=== PATIENT | female | born 1985 | race Two or more races ===

== ENCOUNTER → 2020-04-28 09:45 | Outpatient (BNVA) | payer OTHER, SELFPAY | PROVIDERS: PCP Internal Medicine; Visit Provider Advanced Practice Midwife | DX: Z30.09 Encounter for other general counseling and advice on contraception (principal); R63.5 Abnormal weight gain | CPT/HCPCS: 99212 ==

== ENCOUNTER 2021-05-13 09:11 | Emergency (ER) | payer BC, MEDICAID, OTHER, SELFPAY ==
[2021-05-13 09:15] VITALS: BP 130/85; PULSE 77; RESP 16; TEMP 36.8; O2SAT 96; BMI 31.6
[2021-05-13 09:48] LABS: IDNOW Serial# 9DD0AD1C; Strep A Nucleic Acid Negative (Negative)
--- NOTE | 2021-05-13 09:52 | ED.URI ---
HPI - URI/Sore Throat General Chief Complaint: General Medical Stated Complaint: sore throat Time Seen by Provider: 05/13/21 09:19 Source: patient Mode of arrival: ambulatory Limitations: no limitations History of Present Illness MD elicited complaint: sore throat Onset (ago): day(s) (One) Consistency: constant and progressively worsening Severity: moderate Able to tolerate fluids by mouth: Yes Exacerbating factors: swallowing Relieving factors: nothing Associated symptoms: denies other symptoms Treatments prior to arrival: none Related Data Previous Rx's Medication Instructions Recorded vits no.130-ferrous fum 1 tab PO DAILY #30 tab 04/28/20 27 mg iron-folic acid 800 mcg tablet ( Vitamin) norethindrone (contraceptive) 0.35 0.35 mg PO DAILY #28 tab 07/27/20 mg tablet amoxicillin 875 mg-potassium 1 tab PO BID 10 Days #20 tab 05/13/21 clavulanate 125 mg tablet (Augmentin) benzonatate 100 mg capsule 100 mg PO BID PRN #14 cap 05/13/21 fluticasone propionate 50 1 spray INTRANASAL BID #16 g 05/13/21 mcg/actuation nasal spray,suspension (Flonase Allergy Relief) Allergies Allergy/AdvReac Type Severity Reaction Status Date / Time acetaminophen [Tylenol] Allergy Unknown anaphylaxis Verified 04/28/20 10:27 Review of Systems Review of Systems: Constitutional : No Weight loss, No Fever, No Chills, No Night Sweats, No Fatigue, No Malaise ENT/Mouth : No Hearing loss, No Ear Pain, No Nasal Congestion, No Sinus Pain, No Hoarseness, + sore throat, No Rhinorrhea, No Swallowing Difficulty Eyes: No Eye Pain, No Swelling, No Redness, No Foreign Body, No Discharge, No Vision Changes Cardiovascular : No Chest Pain, No SOB, No Dyspnea on Exertion, No Orthopnea, No Edema, No Palpitations Respiratory : No Cough, No Sputum, No Wheezing, No Smoke Exposure, No Dyspnea Gastrointestinal : No Nausea, No Vomiting, No Diarrhea, No Constipation, No abdominal Pain, No Hematochezia, No Melena Genitourinary : no irregular bleeding, No Dysuria, No Urinary Frequency, No Hematuria, No Urinary Incontinence, No Urgency, No Flank Pain, No Urinary Flow Changes, No Hesitancy Musculoskeletal : No joint pain, No Myalgias, No Joint Swelling Skin : No Skin Lesions, No rash Neuro : No Weakness, No Numbness, No Paresthesias, No Loss of Consciousness, No Dizziness, No Headache Psych : No Anxiety/Panic, No Depression, No SI/HI/AH/VH, No Social Issues, Heme/Lymph: No Bruising, No Bleeding,No Lymphadenopathy Endocrine : No Polyuria, No Polydipsia, No Temperature Intolerance Yes all other systems are reviewed and are negative [facility] Past Medical History Attestation statement: The following information was validated with the patient. Medical History Allergic rhinitis Surgical History No history of previous surgery Family History Family History Father HTN (hypertension) Mother HTN (hypertension) Maternal Grandmother Uterine cancer Social History Social History Alcohol intake: current Alcohol intake frequency: holidays/special occasions only Advance Directives: No Advance Directives Information Provided: No Gender identity: Female Physical Exam Vital Signs: Vital Signs: Last Vital Signs Temp 98.2 F 05/13/21 09:15 Pulse 77 05/13/21 09:15 Resp 16 05/13/21 09:15 BP 130/85 05/13/21 09:15 Pulse Ox 96 05/13/21 09:15 Body Mass Index 31.6 vital signs have been reviewed as normal and appeared to be correct. Blood pressure normal. Heart rate normal. Respiration rate normal. Temperature normal. Oxygen saturation normal. Appearance: Alert. Oriented X3. No acute distress. Head: Normal external exam. Normocephalic. Atraumatic. Eyes: PERRLA. EOMI. Conjunctiva and sclera normal. Eyelids normal. ENT: EAC normal. TM's Normal. Posterior pharynx mildly erythematous. No exudate is noted. Uvula midline. Moist mucous membranes. No trismus noted. No drooling noted. No muffled voice noted. Neck: Normal inspection. Neck supple. FROM. No adenopathy. Thyroid Normal. No meningeal signs. No neck mass noted. CVS: Normal heart rate and rhythm. Heart sound normal. Pulses normal throughout. No murmurs/rales/gallops. Respiratory: No respiratory distress. Painless inspiration. Breath sounds normal. No wheezes/rales/rhonchi noted. Chest nontender. No accessory muscle usage noted or decreased air movement noted. Back: Full range of motion noted. Skin: Skin warm and dry. Normal skin color. Normal skin turgor. No rashes/lesions/lacerations noted. Extremities: Extremities exhibit normal range of motion. Extremities nontender. Neuro: Oriented X 3. No motor deficit. No sensory deficit. Reflexes normal. Normal steady gait. No focal neuro deficits noted. MDM - URI/Sore Throat Medical Records Attestation: I reviewed the patient's medical records. Lab Data Attestation: I reviewed the patient's lab results. Labs: Lab Results 05/13/21 05/13/21 Range/Units 09:29 09:29 COVID-19 (YAZ) Negative (Negative) COVID-19 Clin Com See Note S. pyogenes GrpA ANDRA Negative (Negative) Discharge Plan Discharge Clinical Impression: Pharyngitis Patient Disposition: Home, Self-Care Instructions: Pharyngitis (ED) Prescriptions: New amoxicillin-pot clavulanate [Augmentin] 875-125 mg tablet 1 tab PO BID 10 Days Qty: 20 RF: 0 fluticasone propionate [Flonase Allergy Relief] 50 mcg/actuation spray,suspension 1 spray intranasal BID Qty: 16 RF: 0 benzonatate 100 mg capsule 100 mg PO BID PRN (Reason: cough) Qty: 14 RF: 0 No Action norethindrone (contraceptive) 0.35 mg tablet 0.35 mg PO DAILY Qty: 28 RF: 3 Vitamin 27 mg iron- 800 mcg tablet 1 tab PO DAILY Qty: 30 RF: 12 Referrals: Physician,None [Primary Care Provider] - 2 days (your pcp) Stand Alone Forms: Work/School Release Print Language: Lebanese
[2021-05-13 10:01] LABS: COVID-19 Test Negative (Negative)
== END 2021-05-13 10:29 | disposition home or self-care (01) ==
PROVIDERS: Physician Assistant Medical; Emergency Provider Emergency Medicine
DX: J02.9 Acute pharyngitis, unspecified (principal); Z20.822 Contact with and (suspected) exposure to COVID-19
CPT/HCPCS: 36415; 87635; 87651; 99283

== ENCOUNTER 2022-01-18 11:53 | Emergency (ER) | payer BC, MEDICAID, OTHER, SELFPAY | END 2022-01-18 13:55 | disposition left against medical advice (07) | PROVIDERS: Emergency Provider Emergency Medicine | DX: A05.9 Bacterial foodborne intoxication, unspecified (principal) ==

== ENCOUNTER 2022-05-22 10:05 | Outpatient (REF) | payer BC, SELFPAY ==
--- NOTE | ~2022-05-22 | XR_ITS ---
EXAMINATION: RIGHT HAND AND WRIST X-RAY CLINICAL INFORMATION: Pain COMPARISON: None TECHNIQUE: 4 views of the right hand and wrist FINDINGS: Bone alignment is normal. No fracture or dislocation. Normal joint spaces. Normal soft tissues. XR/XR hand wrist RT IMPRESSION: Unremarkable exam.
[2022-05-22 10:51] LABS: Hematocrit 41.3 % (37.0-47.0); Hemoglobin 13.4 g/dl (12.0-16.0); Mean Corpuscular HGB Conc 32.4 g/dl (31.0-35.0); Mean Corpuscular Hemoglobin 26.9 pg (27.0-33.0); Mean Corpuscular Volume 82.8 fL (80.0-98.0); Mean Platelet Volume 11.4 fL (9.4-12.3); Platelet Count 286 X10*3/uL (160-400); Red Blood Count 4.99 X10*6/uL (4.20-5.50); Red Cell Distribution Width 13.8 % (11.0-16.0); White Blood Count 7.7 X10*3/uL (4.8-10.8)
[2022-05-22 11:50] LABS: Alanine Aminotransferase 36 U/L (0-31); Albumin Level 4.2 g/dL (3.5-5.0); Alkaline Phosphatase 91 U/L (39-117); Anion Gap 14 (12-20); Aspartate Amino Transferase 19 U/L (5-31); Bilirubin Total 0.4 mg/dL (0.0-1.0); Blood Urea Nitrogen 15 mg/dL (9-16); Carbon Dioxide 24 mmol/L (22-29); Chloride 105 mmol/L (96-108); Estimated Glomerular Filt Rate > 60; Glucose Fasting 100 mg/dL (60-99); Potassium 4.6 mmol/L (3.3-5.1); Sodium 138 mmol/L (135-145); Total Protein 7.3 g/dL (6.5-8.0)
[2022-05-22 11:55] LABS: TSH reflex Free T4 3.41 uIU/mL (0.32-4.0)
== END 2022-05-22 10:06 | disposition home or self-care (01) ==
LOC: HO.XRAY 10:05
PROVIDERS: PCP Physician Assistant; Visit Provider Physician Assistant
DX: Z13.29 Encounter for screening for other suspected endocrine disorder (principal); M79.641 Pain in right hand
CPT/HCPCS: 36415; 73110; 73130; 80053; 84443; 85027

== ENCOUNTER 2022-06-06 17:13 | Emergency (ER) | payer BC, SELFPAY ==
--- NOTE | ~2022-06-06 | XR_ITS ---
EXAMINATION: XR CHEST CLINICAL INFORMATION: Shortness of breath COMPARISON: None TECHNIQUE: 2 views of the chest were obtained. FINDINGS: The lungs are clear with no focal consolidation. No evidence of pneumothorax, pulmonary edema, or pleural effusions. Cardiac silhouette appears near the upper limits of normal in size. No acute osseous findings. XR/XR chest 2V IMPRESSION: No acute cardiopulmonary findings.
[2022-06-06 19:12] VITALS: BP 127/81; PULSE 110; RESP 19; TEMP 37.4; O2SAT 98; BMI 31.6
--- NOTE | 2022-06-06 19:14 | ED.GENADULT ---
HPI - General Adult General Chief complaint: General Medical <Nicolle Jim MD - Last Filed: 06/06/22 19:24> Stated complaint: covid +, asking for medication <Nicolle Jim MD - Last Filed: 06/06/22 19:24> Time Seen by Provider: 06/06/22 20:26 <Nicolle Jim MD - Last Filed: 06/06/22 19:24> Source: patient <FRITZ Connors - Last Filed: 06/06/22 21:18> Mode of arrival: ambulatory <FRITZ Connors - Last Filed: 06/06/22 21:18> History of Present Illness HPI narrative: 36-year-old female with a past medical history of allergic rhinitis, presenting to the ED complaining productive cough, mild SOB, subjective fever and chills since yesterday. Admits tested positive for COVID-19 on home test today. Also reports chest discomfort with cough. Denies recent travel, sick contacts, ear pain, sore throat, pedal edema, calf pain, smoking <FRITZ Connors - Last Filed: 06/06/22 21:18> Onset (ago): day(s) <FRITZ Connors - Last Filed: 06/06/22 21:18> Related Data Home medications: Previous Rx's Medication Instructions Recorded norethindrone 1 mg-ethinyl 1 tab PO DAILY #84 tabs 05/22/22 estradiol 20 mcg (21)-iron 75 mg (7) tablet (07/21 (28)) fluticasone propionate 50 1 spray intranasal DAILY 30 days 05/31/22 mcg/actuation nasal #16 grams spray,suspension benzonatate 100 mg capsule 100 mg PO TID PRN cough #14 caps 06/06/22 fluticasone propionate 50 2 spray intranasal DAILY #16 grams 06/06/22 mcg/actuation nasal spray,suspension (Flonase Allergy Relief) <Nicolle Jim MD - Last Filed: 06/06/22 19:24> Allergies/adverse reactions: Allergies Allergy/AdvReac Type Severity Reaction Status Date / Time No Known Allergies Allergy Verified 06/06/22 19:18 <Nicolle Jim MD - Last Filed: 06/06/22 19:24> Review of Systems Review of Systems: Constitutional: + Fever, + Chills ENT/Mouth: No Ear Pain, + Nasal Congestion, No Sinus Pain, No Hoarseness, No sore throat, + Rhinorrhea, No Swallowing Difficulty Cardiovascular: + Chest Pain with cough, + SOB Respiratory: + Cough, + Sputum, No Wheezing Gastrointestinal: No Nausea, No Vomiting, No Diarrhea, No Constipation, No Abdominal pain Genitourinary: No Dysuria, No Urinary Frequency, No Hematuria, No Urgency, No Flank Pain Musculoskeletal: No joint pain, No Myalgias, No Joint Swelling Skin: No Skin Lesions, No rash Neuro: No Weakness, No Numbness <FRITZ Connors - Last Filed: 06/06/22 21:18> Yes all other systems are reviewed and are negative <FRITZ Connors - Last Filed: 06/06/22 21:18> Constitutional: Constitutional: Reports as per HPI <FRITZ Connors - Last Filed: 06/06/22 21:18> [facility] Past Medical History Attestation statement: The following information was validated with the patient. <FRITZ Connors - Last Filed: 06/06/22 21:18> Medical History: Medical History Allergic rhinitis <Nicolle Jim MD - Last Filed: 06/06/22 19:24> Surgical History: Surgical History H/O plastic surgery No history of previous surgery <Nicolle Jim MD - Last Filed: 06/06/22 19:24> Family History Family History: Family History Father HTN (hypertension) Mother HTN (hypertension) Maternal Grandmother Uterine cancer <Nicolle Jim MD - Last Filed: 06/06/22 19:24> Social History Social History: Social History Housing: House Alcohol intake: current Alcohol intake frequency: holidays/special occasions only Patient Tobacco Use Status: Never used Tobacco e-Cigarette/Vaping Use: Never Used Advance Directives: No Advance Directives Information Provided: No service: No Current occupational status: employed Current occupation: [employer] Gender identity: Female Cognitive needs: No Hearing needs: No Vision needs: No <Nicolle Jim MD - Last Filed: 06/06/22 19:24> Physical Exam ED Vital Signs: Vital Signs - 24 hr 06/06/22 19:12 06/06/22 21:12 06/06/22 21:15 Temperature 99.3 F 98.3 F 98.7 F Pulse Rate 110 H 93 94 Respiratory Rate 19 18 Blood Pressure 127/81 134/87 Pulse Oximetry 98 98 98 Oxygen Delivery Method Room Air Room Air Room Air BMI result Body Mass Index 31.6 <Nicolle Jim MD - Last Filed: 06/06/22 19:24> Vital Signs - 24 hr 06/06/22 19:12 06/06/22 21:12 06/06/22 21:15 Temperature 99.3 F 98.3 F 98.7 F Pulse Rate 110 H 93 94 Respiratory Rate 19 18 Blood Pressure 127/81 134/87 Pulse Oximetry 98 98 98 Oxygen Delivery Method Room Air Room Air Room Air BMI result Body Mass Index 31.6 <FRITZ Connors - Last Filed: 06/06/22 21:18> Const General: cooperative, healthy appearing and no acute distress <FRITZ Connors - Last Filed: 06/06/22 21:18> Orientation/consciousness: patient oriented x3 <FRITZ Connors - Last Filed: 06/06/22 21:18> Limitations: no limitations <FRITZ Connors - Last Filed: 06/06/22 21:18> HENMT Head: Yes normal to inspection and Yes atraumatic <FRITZ Connors - Last Filed: 06/06/22 21:18> Ears: hearing grossly normal bilaterally, external ears normal, TM's normal bilaterally and mastoids normal <FRITZ Connors - Last Filed: 06/06/22 21:18> General nose exam: Normal external nose present <FRITZ Connors - Last Filed: 06/06/22 21:18> Face and sinus: Yes normal facial exam <FRITZ Connors - Last Filed: 06/06/22 21:18> Mouth: Normal oral and palatal mucosa present <Tahmina Bradford PA - Last Filed: 06/06/22 21:18> Throat: Yes posterior oropharynx normal, Yes tonsils normal, Yes uvula midline, No peritonsillar mass and No uvula laterally displaced <Tahmina Bradford PA - Last Filed: 06/06/22 21:18> Eyes General: appearance normal, both eyes and all related structures <Tahmina Bradford PA - Last Filed: 06/06/22 21:18> EOM: EOMs intact bilaterally <Tahmina Bradford PA - Last Filed: 06/06/22 21:18> Neck Neck: Yes normal visual inspection and Yes no meningeal signs <Tahmina Bradford PA - Last Filed: 06/06/22 21:18> Resp Effort & Inspection: normal respiratory effort, no respiratory distress and no stridor <Tahmina Bradford PA - Last Filed: 06/06/22 21:18> Auscultation: clear to auscultation bilaterally, no crackles, no rales and no rhonchi <Tahmina Bradford PA - Last Filed: 06/06/22 21:18> Cardio Rate: regular rate <Tahmina Bradford PA - Last Filed: 06/06/22 21:18> Heart sounds: S1 normal heart sound present and S2 normal heart sound present <Tahmina Bradford PA - Last Filed: 06/06/22 21:18> GI Inspection: Yes normal to inspection <Tahmina Bradford PA - Last Filed: 06/06/22 21:18> Palpation (GI): Soft to palpation, nontender, no guarding and not rigid <Tahmina Bradford PA - Last Filed: 06/06/22 21:18> General: Yes no CVA tenderness <Tahmina Bradford PA - Last Filed: 06/06/22 21:18> Back/Spine/Pelvis Back: no CVA tenderness <Tahmina Bradford PA - Last Filed: 06/06/22 21:18> Skin Rashes: no rashes <Tahmina Bradford PA - Last Filed: 06/06/22 21:18> Wounds: no wounds <Tahmina Blancat, PA - Last Filed: 06/06/22 21:18> Neuro General: patient oriented x3, tone normal and no meningeal signs <FRITZ Connors - Last Filed: 06/06/22 21:18> Gait exam (Neuro): Normal gait present <FRITZ Connors - Last Filed: 06/06/22 21:18> Extrem General: Yes normal to inspection, Yes no pedal edema and Yes no calf tenderness <FRITZ Connors - Last Filed: 06/06/22 21:18> Course Course Course Narrative: 36F tested positive for COVID with symptoms that started yesterday. No PMH. VS Reviewed GEN: NAD EARS: wnl THROAT: wnl LUNGS: CTAB CVS: RRR ABD: NT/ND <Nicolle Jim MD - Last Filed: 06/06/22 19:24> Reevaluation(s) Reevaluation #1: -[id number]--COVID positive XR chest 2V IMPRESSION: No acute cardiopulmonary findings. Results discussed with patient including worrisome signs and symptoms and strict return precautions, and when to return to the emergency department. They verbalized understanding and feel safe for discharge at this time. ? <FRITZ Connors - Last Filed: 06/06/22 21:18> Time: 21:17 <FRITZ Connors - Last Filed: 06/06/22 21:18> Medications Administered Discontinued Medications Generic Name Dose Route Start Last Admin Trade Name Freq PRN Reason Stop Dose Admin Acetaminophen 975 mg 06/06/22 19:20 06/06/22 19:23 Acetaminophen 325 Mg Tablet PO 06/06/22 19:21 975 mg ONCE ONE Administration Ibuprofen 400 mg 06/06/22 19:20 06/06/22 19:23 Ibuprofen 400 Mg Tablet PO 06/06/22 19:21 400 mg ONCE ONE Administration <Nicolle Jim MD - Last Filed: 06/06/22 19:24> Medications Administered Discontinued Medications Generic Name Dose Route Start Last Admin Trade Name Freq PRN Reason Stop Dose Admin Acetaminophen 975 mg 06/06/22 19:20 06/06/22 19:23 Acetaminophen 325 Mg Tablet PO 06/06/22 19:21 975 mg ONCE ONE Administration Ibuprofen 400 mg 06/06/22 19:20 06/06/22 19:23 Ibuprofen 400 Mg Tablet PO 06/06/22 19:21 400 mg ONCE ONE Administration <FRITZ Connors - Last Filed: 06/06/22 21:18> Medical Decision Making Medical Decision Making MDM Narrative: 36-year-old female with a past medical history of allergic rhinitis, presenting to the ED complaining productive cough, mild SOB, subjective fever and chills since yesterday. On exam low-grade temp 99.3 degrees, tachycardic likely from fever, NAD/nontoxic appearing, lungs CTA, no pedal edema/calf tenderness. Concern for COVID-19/viral illness. Rule out pneumonia. Symptoms atypical for ACS/PE. Low suspicion for severe sepsis Plan: COVID-19/influenza testing, CXR, antipyretics, re-evaluate <FRITZ Connors - Last Filed: 06/06/22 21:18> Differential Diagnoses: Differential diagnosis Differential Diagnosis: The differential diagnosis associated with the patient?s presentation includes: As above <FRITZ Connors - Last Filed: 06/06/22 21:18> Lab Attestation: I reviewed the patient's lab results. <FRITZ Connors - Last Filed: 06/06/22 21:18> Non-ED record review: Review of External (Non-ED) Record External record reviewed:: Inpatient record, Office record, Outpatient record and Prior outpatient radiology <FRITZ Connors - Last Filed: 06/06/22 21:18> Prescription medication was considered but ultimately not given after discussion with patient/family. (e.g., pain medication, antiviral, antibiotic): Prescriptions considered but not given I considered prescription management with: Antibiotic <FRITZ Connors - Last Filed: 06/06/22 21:18> Discharge Plan Discharge Clinical Impression: COVID-19 <Nicolle Jim MD - Last Filed: 06/06/22 19:24> Patient Disposition: Home, Self-Care <Nicolle Jim MD - Last Filed: 06/06/22 19:24> Instructions: COVID-19 (Coronavirus Disease 2019) (ED) <Nicolle Jim MD - Last Filed: 06/06/22 19:24> Additional Instructions: At this time you will be okay for discharge. Please self isolate for 5-10 days. Do not expose yourself to others. You may not go to work or school. Tessalon Perles for cough take as needed. Flonase and nasal decongestion Please continue to follow cold instructions and wash your hands frequently. You may take Tylenol / Motrin as directed on the bottle for pain or fever. If you have constant or persistent shortness of breath, fever unresolved with medications, chest pain, or your unable to eat or drink please return to the ED CDC Guidelines for home isolation: - Stay away from others - WEAR A MASK if you are sick AND STAY HOME - Cover your mouth and nose with a tissue when you cough or sneeze. Dispose of tissues in a lined trash can and wash your hands immediately with soap and water for at least 20 seconds. If soap and water are not available, clean hands with alcohol-based hand mild disabilities teacher that contains at least 60% alcohol. - Clean your hands often with soap and water for at least 20 seconds - Avoid touching your eyes, nose and mouth with unwashed hands - Do not share dishes, drinking glasses, cups, eating utensils, towels, or bedding with other people in your home. After using these items, wash them thoroughly with soap and water or put in the camp assistant. - Clean high-touch surfaces in your isolation area ( sick room and bathroom) every day; let a caregiver clean and disinfect high-touch surfaces in other areas of the home. Clean the area or item with soap and water or another detergent if it is dirty. Then, use a household disinfectant. - Limit contact with pets and animals: If you must care for a pet, wash your hands before and after interacting with them) <Nicolle Jim MD - Last Filed: 06/06/22 19:24> Prescriptions: New benzonatate 100 mg capsule 100 mg PO TID PRN (Reason: cough) Qty: 14 0RF fluticasone propionate [Flonase Allergy Relief] 50 mcg/actuation spray,suspension 2 spray intranasal DAILY Qty: 16 0RF Rx Instructions: administer into each nostril No Action fluticasone propionate 50 mcg/actuation spray,suspension 1 spray intranasal DAILY 30 Days Qty: 16 3RF Rx Instructions: administer into each nostril norethindrone-e.estradiol-iron [07/21 (28)] 1 mg-20 mcg (21)/75 mg (7) tablet 1 tab PO DAILY Qty: 84 3RF <Nicolle Jim MD - Last Filed: 06/06/22 19:24> Referrals: Ramses Ochoa PA-C [Primary Care Provider] - 1 week <Nicolle Jim MD - Last Filed: 06/06/22 19:24> Stand Alone Forms: Work/School Release <Nicolle Jim MD - Last Filed: 06/06/22 19:24>
[2022-06-06] MEDS: Acetaminophen 325 MG TABLET 975 MG PO (19:23)
[2022-06-06] MEDS: Ibuprofen 400 MG TABLET PO (19:23)
[2022-06-06 19:42] LABS: IDNOW Serial# 16C4AD1C
[2022-06-06 19:43] LABS: COVID-19 Test Positive (Negative)
[2022-06-06 19:53] LABS: IDNOW Serial# BCCEAD1C; Influenza A Negative (Negative); Influenza B2 Negative (Negative)
[2022-06-06 21:12] VITALS: PULSE 93; TEMP 36.8; O2SAT 98
[2022-06-06 21:15] VITALS: BP 134/87; PULSE 94; RESP 18; TEMP 37.1; O2SAT 98
== END 2022-06-06 21:27 | disposition home or self-care (01) ==
PROVIDERS: Emergency Provider Student in an Organized Health Care Education/Training Program; PCP Physician Assistant
DX: U07.1 COVID-19 (principal); R06.02 Shortness of breath; Z79.899 Other long term (current) drug therapy
CPT/HCPCS: 71046; 87502; 87635; 99283

== ENCOUNTER 2022-07-19 09:49 | Outpatient (REF) | payer BC, SELFPAY ==
--- NOTE | ~2022-07-19 | XR_ITS ---
EXAMINATION: XR KNEE, LEFT CLINICAL INFORMATION: Pain COMPARISON: None TECHNIQUE: Three views of the left knee. FINDINGS: No acute fracture or dislocation. Joint spaces are maintained. Soft tissues are unremarkable. No joint effusion. XR/XR knee LT 3V IMPRESSION: No acute osseous abnormality.
[2022-07-19 16:03] LABS: CT PCR NOT DETECTED (Not Detect.); NG PCR NOT DETECTED (Not Detect.)
[2022-07-20 09:50] LABS: Syphilis Screen Nonreactive (Nonreactive)
[2022-07-20 10:18] LABS: HBsAGNum1 0.37 S/CO (0.00-0.99); HIV AB/AG Nonreactive (Nonreactive); HIV Num 1 0.42 S/CO (0.00-0.99); Hepatitis B Surface Antigen Negative (Negative); ~HepC Num1 0.16 S/CO (0.00-0.79); ~Hepatitis C Antibody Nonreactive (Nonreactive)
== END 2022-07-19 09:50 | disposition home or self-care (01) ==
LOC: HO.XRAY 09:49
PROVIDERS: Advanced Practice Midwife; PCP Physician Assistant; Visit Provider Physician Assistant
DX: Z11.4 Encounter for screening for human immunodeficiency virus [HIV] (principal); Z11.3 Encounter for screening for infections with a predominantly sexual mode of transmission; M25.562 Pain in left knee
CPT/HCPCS: 0353U; 73562; 86780; 86803; 87340; 87389

== ENCOUNTER 2022-07-19 11:05 | Outpatient (REF) | payer BC, SELFPAY ==
[2022-07-20 13:48] LABS: BV Int Neg Control Negative (Negative); BV Int Pos Control Positive (Positive)
[2022-07-22 03:18] LABS: HPV mRNA E6/E7 rflx Not Detected (Not Detected)
== END 2022-07-19 11:06 | disposition home or self-care (01) ==
LOC: HO.LNP 11:05
PROVIDERS: Visit Provider Advanced Practice Midwife
DX: Z01.419 Encounter for gynecological examination (general) (routine) without abnormal findings (principal); Z11.51 Encounter for screening for human papillomavirus (HPV)
CPT/HCPCS: 87480; 87510; 87624; 87660; 88142

== ENCOUNTER 2022-07-26 14:03 | Outpatient (REF) | payer BC, SELFPAY ==
--- NOTE | ~2022-07-26 | US_ITS ---
EXAMINATION: US PELVIS CLINICAL INFORMATION: Uterine hypertrophy; the last menstrual period was on 07/11/2022. COMPARISON: None TECHNIQUE: Ultrasound of the pelvis is performed using both transabdominal and transvaginal transducers along with Doppler. Transvaginal imaging is performed due to inadequate visualization transabdominally. FINDINGS: Uterus: The uterus is anteverted and anteflexed. The uterus measures 14.1 x 7.0 x 8.0 cm. Nabothian cysts are seen within the cervix. The endometrial stripe is poorly visualized due to fibroid disease. The uterus is smooth in contour and has heterogeneous myometrial echogenicity. FIBROIDS: There are 2 fibroids seen. 1. Location: Lower uterine segment, myometrial. Size: 6.9 x 7.2 x 6.7 cm. Fibroid characteristics: Heterogeneous echotexture. 2. Location: Upper body/fundus; subserosal. Size: 7.7 x 7.4 x 8.0 cm. Fibroid characteristics: Heterogeneous echotexture. Adnexa: Both ovaries are visualized. There is normal color flow to the adnexa. There is no ovarian torsion. There is a small amount of free fluid in the cul-de-sac. Right ovary measures 2.7 x 1.3 x 2.1 cm, volume 4.0 mL. Left ovary measures 6.7 x 3.4 x 7.3 cm, volume 8.9 mL. A 5.6 x 3.7 x 5.0 cm complex cyst is seen, with internal reticulated contents. This shows no focal nodularity or associated color Doppler flow. There is an adjacent 2.5 x 1.8 x 1.6 cm simple cyst. US/US pelvic and transvaginal IMPRESSION: 1. A 5.6 cm in maximal diameter complex left ovarian cyst is seen, with internal reticulated appearance. This may represent a hemorrhagic cyst. Further differential considerations include an endometrioma or dermoid. Recommend repeat ultrasound examination in 6-12 weeks to ensure regression/resolution. Should this finding persist on follow-up ultrasound imaging, MRI evaluation may be considered. 2. An additional 2.5 cm in maximal diameter benign, simple left ovarian cyst is incidentally noted. 3. There is uterine fibroid disease. 4. Nabothian cysts are seen within the cervix. 5. There is a small amount nonspecific free fluid within the cul-de-sac.
== END 2022-07-26 14:04 | disposition home or self-care (01) ==
LOC: HO.HMGCX 14:03
PROVIDERS: PCP Physician Assistant; Visit Provider Advanced Practice Midwife
DX: N92.1 Excessive and frequent menstruation with irregular cycle (principal); N85.2 Hypertrophy of uterus
CPT/HCPCS: 76830; 76856

== ENCOUNTER → 2022-08-17 09:01 | Outpatient (BNVA) | payer BC, SELFPAY | PROVIDERS: PCP Physician Assistant; Visit Provider Advanced Practice Midwife | DX: Z13.89 Encounter for screening for other disorder (principal) ==

== ENCOUNTER 2022-09-13 09:34 | Outpatient (REF) | payer BC, SELFPAY | END 2022-09-13 09:35 | disposition home or self-care (01) | LOC: HO.LNP 09:34 | PROVIDERS: Visit Provider Obstetrics & Gynecology | DX: N93.9 Abnormal uterine and vaginal bleeding, unspecified (principal); D25.9 Leiomyoma of uterus, unspecified; N83.299 Other ovarian cyst, unspecified side | CPT/HCPCS: 58100; 88305 ==

== ENCOUNTER → 2022-09-20 08:01 | Outpatient (BNVA) | payer BC, SELFPAY | PROVIDERS: Visit Provider Obstetrics & Gynecology | DX: D25.9 Leiomyoma of uterus, unspecified (principal); N93.9 Abnormal uterine and vaginal bleeding, unspecified; N83.299 Other ovarian cyst, unspecified side ==

== ENCOUNTER 2022-09-22 10:28 | Day surgery (SDC) | payer BC, SELFPAY ==
--- NOTE | 2022-09-21 09:07 | HO.ANESPROP2 ---
HPI - Anesthesia Eval Consult details Narrative: 37yo F for D&C Hysteroscopy possible myomectomy/polyectomy PMFSH Active Problems Active Problems: All Active Problems (Updated 09/20/22 @ 08:06 by Galindo Schmidt MD) Uterine myoma (Acute) Abnormal uterine bleeding (Acute) Ovarian cyst, complex (Acute) Fibroids (Acute) Well woman exam with routine gynecological exam (Acute) Cervical cancer screening (Acute) Bulky or enlarged uterus (Acute) Breakthrough bleeding on OCPs (Acute) Screen for sexually transmitted diseases (Acute) COVID-19 (Acute) Left knee pain (Acute) Allergic rhinitis (Acute) Screening for hypercholesterolemia (Acute) Infertility counseling (Acute) Hyperpigmentation (Acute) Right hand pain (Acute) Screening for diabetes mellitus (DM) (Acute) Screening for hypothyroidism (Acute) Obese (Acute) Viral gastroenteritis (Acute) Weight gain (Acute) control counseling (Acute) Pre-conception counseling (Acute) Past Medical History Medical History Allergic rhinitis Family History Family History Father HTN (hypertension) Mother HTN (hypertension) Maternal Grandmother Uterine cancer Surgical History Surgical History (Updated 09/22/22 @ 10:41 by Karen Castellanos, RN) H/O plastic surgery No history of previous surgery Social History Social History Housing: House Alcohol intake: current Alcohol intake frequency: holidays/special occasions only Patient Tobacco Use Status: Never used Tobacco e-Cigarette/Vaping Use: Never Used service: No Current occupational status: employed Current occupation: [employer] Gender identity: Female Cognitive needs: No Hearing needs: No Vision needs: No Meds Allergies Allergy/AdvReac Type Severity Reaction Status Date / Time No Known Allergies Allergy Verified 09/22/22 10:54 Exam Exam Date and Time: September 21, 2022906 Pertinent Lab Results Pertinent Lab Results: Laboratory Tests 05/22/22 05/22/22 10:30 10:30 WBC 7.7 Hgb 13.4 Hct 41.3 Plt Count 286 Sodium 138 Potassium 4.6 Chloride 105 Carbon Dioxide 24 BUN 15 Creatinine 0.74 Assessment and Plan Assessment Anesthesia Assessment: Chart Reviewed
[2022-09-22 10:41] VITALS: BMI 30.7
[2022-09-22 10:51] LABS: UPreg QC Valid YES; Urine Pregnancy NEGATIVE (NEGATIVE)
[2022-09-22 10:54] VITALS: BP 132/93; PULSE 70; RESP 16; TEMP 37.1; O2SAT 97
--- NOTE | 2022-09-22 11:04 | P.CONAN_ITS ---
[facility] Active Problems Active Problems: All Active Problems (Updated 09/20/22 @ 08:06 by Galindo Schmidt MD) Pre-conception counseling (Acute) control counseling (Acute) Weight gain (Acute) Viral gastroenteritis (Acute) Obese (Acute) Screening for hypothyroidism (Acute) Screening for diabetes mellitus (DM) (Acute) Right hand pain (Acute) Hyperpigmentation (Acute) Infertility counseling (Acute) Screening for hypercholesterolemia (Acute) Left knee pain (Acute) COVID-19 (Acute) Screen for sexually transmitted diseases (Acute) Breakthrough bleeding on OCPs (Acute) Bulky or enlarged uterus (Acute) Cervical cancer screening (Acute) Well woman exam with routine gynecological exam (Acute) Fibroids (Acute) Ovarian cyst, complex (Acute) Abnormal uterine bleeding (Acute) Uterine myoma (Acute) Allergic rhinitis (Acute) Past Medical History Medical History Allergic rhinitis Family History Family History Father HTN (hypertension) Mother HTN (hypertension) Maternal Grandmother Uterine cancer Family history of problems with anesthesia: No Surgical History Surgical History (Updated 09/22/22 @ 10:41 by Karen Castellanos, RN) H/O plastic surgery No history of previous surgery History of Problems with Anesthesia: No Social History Social History Housing: House Alcohol intake: current Alcohol intake frequency: holidays/special occasions only Patient Tobacco Use Status: Never used Tobacco e-Cigarette/Vaping Use: Never Used Use of substances other than those prescribed or required for medical reasons: No Are you DNR?: No Advance Directives: No Advance Directives Information Provided: Yes service: No Current occupational status: employed Current occupation: [employer] Gender identity: Female Cognitive needs: No Hearing needs: No Vision needs: No Meds Allergies Allergy/AdvReac Type Severity Reaction Status Date / Time No Known Allergies Allergy Verified 09/22/22 10:54 Active Medications: Current Medications Lactated Ringer's (Lr) 1,000 mls @ 100 mls/hr IVCONT .Q10H LIZZ Exam Exam Date and Time: September 22, 2022 1104 Height,Weight and Vital Signs: Height 5 ft 5 in Weight 83.6 kg Pertinent Lab Results Pertinent Lab Results: Laboratory Tests 09/22/22 10:35 Urine Test NEGATIVE Airway Mallampati Class: II TM Dist: >3cm Neck ROM: Full Assessment and Plan Assessment Anesthesia Assessment: Anesthesia Plan Discussed and Chart Reviewed Final Anesthetic Review Family History of Problems with Anesthesia: No History of Problems with Anesthesia: No NPO: Yes ASA Class: II Final Preanesthetic Review: No Changes in Pt Med Stat, Meds/Allgs Chart Reviewed, Consent Obtained/Reviewed and Anes Risks/Benef Reviewed Patient Risk: Low Procedure Risk: Low Anesthetic Plan Anesthetic Plan: GA Disposition: Standard PACU
[2022-09-22] MEDS: Lactated Ringers 1,000 ML 100 ML IVCONT (11:07)
--- NOTE | 2022-09-22 11:40 | MHC.SHP ---
Pre-Procedural Eval Section A Date of Service: 09/22/22 The patient is an INPATIENT: No Changes since office visit: No Cold of Flu in the past 2 weeks, No New Medical Problems, No Changes in Medication and No Patient answered all questions The History & Physical has been completed within 30 days and I have reviewed it.: Yes Section B Chief Complaint: Leiomyoma of uterus, unspecified Allergies: Allergies Allergy/AdvReac Type Severity Reaction Status Date / Time No Known Allergies Allergy Verified 09/22/22 10:54 Plan Diagnosis/Plan: Unchanged I have reviewed the history and physical and performed a pertinent physical examination on my patient. No changes have occurred unless specified. Time Spent With Patient Time: Total time managing care of this patient today ____ minutes.
--- NOTE | 2022-09-22 12:21 | PM.OP ---
Brief Operative Note Date of Service: 09/22/22 Pre-op diagnosis: Fragments of endometrial polyp on EMB pathology Post-op diagnosis: other (Normal endometrial cavity with no evidence of pathology) Procedure: Hysteroscopy D&C Surgeon: Galindo Schmidt MD Anesthesia: GLMA Was an Housing Project Manager used for this Procedure?: No Estimated blood loss (mL): 0 Pathology: other (Endometrial Scrapping.) Condition: stable Disposition: PACU
--- NOTE | 2022-09-22 12:21 | W.PM.OPN ---
Operative Note Operative Note Date of Service: 09/22/22 Narrative: Preop Diagnosis: Fragments of endometrial polyp on EMB pathology Operation: Diagnostic Hysteroscopy, Dilataion & Curettage Post Op Diagnosis: Normal endometrial and endocervical cavity, no evidence of pathology QBL: Minimal Anesthesia: GLMA Surgeon: aGlindo Schmidt MD Briar Wood Sorter: None Complication: None Pathology: Endometrial Scrapings Procedure: The patient was put in the dorsal lithotomy position, scrubbed, and draped in the usual manner. A sterile speculum was inserted in the patient's vagina. The anterior lip of the cervix was grasped with a single tooth tenaculum. The cervix was dilated up to 5 mm, then the scope was inserted in the patient's uterus. Inspection revealed normal endocervical & endometrial cavity with no evidence of pathology. The scope was taken out of the uterine cavity , then sharp curetting was carried on with no complications. At the end of the procedure, all instruments were taken out of the patient uterine and vaginal cavity. The single tooth tenaculum was removed and homeostasis was assured using pressure. The patient tolerated the procedure well and was transferred to the PACU in a stable condition.
[2022-09-22 12:27] VITALS: BP 140/100; PULSE 82; RESP 20; TEMP 36.7; O2SAT 100
[2022-09-22 12:32] VITALS: BP 142/97; PULSE 87; RESP 17; O2SAT 96
[2022-09-22 12:37] VITALS: BP 153/98; PULSE 76; RESP 17; O2SAT 98
[2022-09-22 12:42] VITALS: BP 150/96; PULSE 73; RESP 18; O2SAT 98
[2022-09-22 12:57] VITALS: BP 143/86; PULSE 72; RESP 16; TEMP 37.4; O2SAT 99
== END 2022-09-22 13:30 | disposition home or self-care (01) ==
PROVIDERS: PCP Physician Assistant; Visit Provider Obstetrics & Gynecology
PROC: 0UDB8ZZ Extraction of Endometrium, Via Natural or Artificial Opening Endoscopic (ICD-10-PCS; CPT 58558; principal; 2022-09-22 12:30)
DX: D25.9 Leiomyoma of uterus, unspecified (principal); N83.292 Other ovarian cyst, left side; J30.9 Allergic rhinitis, unspecified; Z79.3 Long term (current) use of hormonal contraceptives
CPT/HCPCS: 58558; 81025; 88305; J1100; J1885; J2250; J2405; J3010

== ENCOUNTER 2022-09-25 10:51 | Outpatient (REF) | payer BC, SELFPAY ==
--- NOTE | ~2022-09-25 | US_ITS ---
EXAMINATION: US PELVIS COMPLETE CLINICAL INFORMATION: Ovarian cyst; the last menstrual period is not specified. COMPARISON: Pelvic ultrasound dated 07/26/2022. TECHNIQUE: Transabdominal and transvaginal imaging were performed. FINDINGS: The uterus is of normal size and echogenicity, measuring 16.1 x 6.9 x 8.6 cm. The uterus is anteverted and anteflexed. The endometrial stripe is poorly visualized due to uterine fibroid disease. FIBROIDS: There are 3 fibroids seen. 1. Location: Lower body, myometrial. Size: 6.0 x 7.7 x 6.7 cm. Prior: 6.9 x 7.2 x 6.7 cm. Fibroid characteristics: Heterogeneous echotexture. 2. Location: Fundal, myometrial. Size: 7.4 x 7.3 x 8.2 cm. Prior: 7.7 x 7.4 x 8.0 cm. Fibroid characteristics: Isoechoic. 3. Location: Anterior body, subdural serosal. Size: 2.6 x 2.1 x 2.8 cm. Prior: 2.6 x 2.6 x 1.8 cm. Fibroid characteristics: Isoechoic. Both ovaries are of normal size and echogenicity. The right ovary measures 2.4 x 1.6 x 1.4 cm for a volume of 2.8 mL. The left ovary measures 3.0 x 2.3 x 2.5 cm for a volume of 9.0 mL. The left ovary contains a 1.8 cm in maximal diameter dominant, simple cyst, with increased through sound transmission. There is a small amount of simple free fluid within the cul-de-sac. No adnexal masses seen US/US pelvic and transvaginal IMPRESSION: 1. There is uterine fibroid disease. There is secondary nonvisualization of the endometrial stripe. 2. A 1.8 cm benign, simple left ovarian cyst is seen, for which no imaging follow-up is recommended. The previously noted 5.6 cm complex left ovarian cyst is not redemonstrated. 3. There is a small amount of nonspecific free fluid within the cul-de-sac.
== END 2022-09-25 10:52 | disposition home or self-care (01) ==
LOC: HO.US 10:51
PROVIDERS: PCP Physician Assistant; Visit Provider Advanced Practice Midwife
DX: N85.2 Hypertrophy of uterus (principal); D21.9 Benign neoplasm of connective and other soft tissue, unspecified; N83.299 Other ovarian cyst, unspecified side
CPT/HCPCS: 76830; 76856

== ENCOUNTER → 2022-10-11 14:08 | Outpatient (BNVA) | payer BC, SELFPAY | PROVIDERS: PCP Physician Assistant; Visit Provider Obstetrics & Gynecology | DX: Z13.89 Encounter for screening for other disorder (principal) ==

== ENCOUNTER 2022-11-15 09:30 | Outpatient (REF) | payer BC, OTHER, SELFPAY ==
[2022-11-15 10:53] LABS: Estimated Average Glucose 111 mg/dL; Hemoglobin A1c % 5.5 %
[2022-11-15 11:21] LABS: Alanine Aminotransferase 51 U/L (0-31); Albumin Level 4.1 g/dL (3.5-5.0); Alkaline Phosphatase 90 U/L (39-117); Anion Gap 12 (12-20); Aspartate Amino Transferase 25 U/L (5-31); Bilirubin Total 0.5 mg/dL (0.0-1.0); Blood Urea Nitrogen 14 mg/dL (9-16); Calcium 9.3 mg/dL (8.4-10.2); Carbon Dioxide 25 mmol/L (22-29); Chloride 107 mmol/L (96-108); Estimated Glomerular Filt Rate > 60; Glucose Fasting 107 mg/dL (60-99); Potassium 4.8 mmol/L (3.3-5.1); Sodium 139 mmol/L (135-145); Total Protein 7.2 g/dL (6.5-8.0)
[2022-11-15 11:48] LABS: TSH reflex Free T4 2.32 uIU/mL (0.32-4.0)
== END 2022-11-15 09:31 | disposition home or self-care (01) ==
LOC: HO.LAB 09:30
PROVIDERS: PCP Physician Assistant; Visit Provider Physician Assistant
DX: R73.01 Impaired fasting glucose (principal); R63.5 Abnormal weight gain
CPT/HCPCS: 36415; 80053; 83036; 84443

== ENCOUNTER → 2023-01-04 09:04 | Outpatient (BNVA) | payer BC, SELFPAY | PROVIDERS: PCP Physician Assistant; Visit Provider Dietitian, Registered | DX: E66.09 Other obesity due to excess calories (principal); Z68.30 Body mass index [BMI] 30.0-30.9, adult; Z71.3 Dietary counseling and surveillance | CPT/HCPCS: 97802 ==

== ENCOUNTER 2023-01-24 08:35 | Outpatient (REF) | payer BC, OTHER, SELFPAY ==
[2023-01-24 11:15] LABS: HBsAGNum1 0.39 S/CO (0.00-0.99); HIV AB/AG Nonreactive (Nonreactive); HIV Num 1 0.05 S/CO (0.00-0.99); Hepatitis B Surface Antigen Negative (Negative); ~HepC Num1 0.09 S/CO (0.00-0.79); ~Hepatitis C Antibody Nonreactive (Nonreactive)
[2023-01-24 11:21] LABS: Syphilis Screen Nonreactive (Nonreactive)
[2023-01-24 19:33] LABS: CT PCR NOT DETECTED (Not Detect.); NG PCR NOT DETECTED (Not Detect.)
[2023-01-25 14:52] LABS: BV Int Neg Control Negative (Negative); BV Int Pos Control Positive (Positive)
== END 2023-01-24 08:36 | disposition home or self-care (01) ==
LOC: HO.LAB 08:35
PROVIDERS: PCP Physician Assistant; Visit Provider Obstetrics & Gynecology
DX: N76.0 Acute vaginitis (principal); D21.9 Benign neoplasm of connective and other soft tissue, unspecified; Z79.899 Other long term (current) drug therapy
CPT/HCPCS: 0353U; 86780; 86803; 87340; 87389; 87480; 87510; 87660

== ENCOUNTER 2023-01-24 08:35 | Outpatient (AMB) | payer BC, SELFPAY ==
--- NOTE | 2023-01-24 08:42 | A.OFFVIS_ITS ---
Intake Vital Signs 01/24/23 08:43 Height 5 ft 5 in Weight 192 lb BMI 31.9 BP 102/76 Intake Visit Reasons: ? vaginal infection Order Processing Clerk Required: No Information Interpreted: non-clinical & clinical Business Services Director: Business Services Director Present (Charity) Allergies No Known Allergies Allergy (Verified 01/24/23 08:47) Is last menstrual period known: No (not sure) Post menopausal: No HPI HPI Comments History of Present Illness Details Presenting complaining of vaginal discharge associated with vaginal itching and foul odor the patient had an ultrasound done in 09/21 which showed 3 myomas, no pressure symptoms no pelvic an 0 abnormal uterine bleeding PFSH Medical History Allergic rhinitis Surgical History H/O plastic surgery No history of previous surgery Family History Father HTN (hypertension) Mother HTN (hypertension) Maternal Grandmother Uterine cancer Social History Housing: House Alcohol intake: current Alcohol intake frequency: holidays/special occasions only Patient Tobacco Use Status: Never used Tobacco e-Cigarette/Vaping Use: Never Used Second Hand Smoke Exposure: No service: No Current occupational status: employed Current occupation: [employer] Gender identity: Female Cognitive needs: No Hearing needs: No Vision needs: No Female Reproductive History Menstrual Age of Menarche: 12 Duration of menses: 3-5 days control method: pills Total pregnancies: 1 Ab induced: 1 Date of last pap smear: 07/19/22 (negative) Review of Systems Const All systems reviewed & are unremarkable except as noted in HPI and below Physical Exam Vital Signs: Last Vital Signs BP 102/76 01/24/23 08:43 BMI result Body Mass Index 31.9 General: Yes no CVA tenderness External Female Exam: normal external appearance and normal appearance of the urethra Speculum Exam - Vagina: normal appearance of the vagina, normal palpation, no lesions and no masses Speculum Exam - Cervix: normal appearance of the cervix, normal palpation, no lesions, no masses and nontender Bimanual exam- vagina & uterus: normal bimanual exam, normal palpation, normal palpation, uterine shape normal, No Cervical tenderness present, non-tender and enlarged (Twenty week size uterus) Bimanual Exam- Adnexa, other: normal adnexae Back/Spine/Pelvis Back: no CVA tenderness Assessment & Plan Assessment & Plan (1) Vulvovaginitis: Comment: Mixed BV +vvc Code(s): N76.0 - Acute vaginitis Plan: GC and chlamydia cultures with BV panel taken. Per CDC recommendation, will screen for STI, HepBs Ag, HIV, RPR, Hep C Ab ordered. Will treat with Flagyl 500 mg p.o. b.i.d. x 7 days, and Terazol 0.8% q.h.s. for 3 days. Instructions given to the patient to refrain from sexual activity or to use condoms consistently and correctly during the BV treatment regimen, not to douch, it might increase the risk for relapse, and to call if symptoms persist or recur. (2) Fibroids: Code(s): D21.9 - Benign neoplasm of connective and other soft tissue, unspecified Plan: Will order pelvic ultrasound to compare the size of myomas. Instructions given to patient to schedule an ultrasound and a follow-up appointment afterwards. All questions answered, the patient verbalized understanding Orders: Orders Bacterial Vaginosis Panel Today N76.0 - Acute vaginitis, N89.8 - Other specified noninflammatory disorders of vagina CT NG by PCR Today N76.0 - Acute vaginitis, N89.8 - Other specified nonin flammatory disorders of vagina Hepatitis B Surface Antigen Today N76.0 - Acute vaginitis Hepatitis C Antibody Today N76.0 - Acute vaginitis HIV Ab/Ag Today N76.0 - Acute vaginitis Syphilis Screen Today N76.0 - Acute vaginitis Medications: New terconazole 0.8% 1 appful vaginal BEDTIME 20 grams 0RF 3 days metronidazole 500 mg PO BID 14 tabs 0RF 7 days Coding Level of Care Code Est Pt Level 3 (84697) Diagnoses Vulvovaginitis N76.0 Fibroids D21.9
[2023-01-24 08:43] VITALS: BP 102/76; BMI 31.9
== END 2023-01-24 09:06 | disposition home or self-care (01) ==
LOC: HO.HWS 08:35
PROVIDERS: PCP Physician Assistant; Visit Provider Obstetrics & Gynecology
DX: N76.0 Acute vaginitis (principal); D21.9 Benign neoplasm of connective and other soft tissue, unspecified
CPT/HCPCS: 99213

== ENCOUNTER 2023-01-31 08:00 | Outpatient (RCR) | payer BC, SELFPAY ==
--- NOTE | 2023-03-08 10:34 | MHC.PT.DC ---
[facility] [place] Office [place] Office [place] Office [address] Hossein Robb [address] [facility] [phone] F: [phone] F: [phone] F: [phone] F: [phone] Physical Therapy Discharge Report Diagnosis: CHRONIC LEFT KNEE PAIN (KP) Date of Surgery: Date of Evaluation: 12/13/22 Date of Discharge: 02/26/23 Treatments to Date: 4 Cancellations to Date: 0 No Shows to Date: 0 Discharge Status: Achieved Goals Improved Function Independent with HEP Discharge Summary: Molly demonstrates strength and ROM both WNLs at this time. She has a comprehensive home program at this time which she has been educated in continuing independently. Electronically signed by: Chiquis Duran PT DPT Please sign and return to therapist. Thank you for your referral.
== END 2023-03-08 10:34 | disposition home or self-care (01) ==
LOC: HO.PT 08:00
PROVIDERS: PCP Physician Assistant; Visit Provider Physician Assistant
DX: M25.562 Pain in left knee (principal)
CPT/HCPCS: 97110; 97140; 97161

== ENCOUNTER 2023-02-14 11:08 | Outpatient (REF) | payer BC, SELFPAY ==
--- NOTE | ~2023-02-14 | US_ITS ---
EXAMINATION: US PELVIS CLINICAL INFORMATION: Fibroids Benign neoplasm of connective and other soft tissue, unspecified LMP 02/02/2023 COMPARISON: Pelvic ultrasound 10/02/2022 TECHNIQUE: Ultrasound of the pelvis is performed using both transabdominal and transvaginal transducers along with Doppler. Transvaginal imaging is performed due to inadequate visualization transabdominally. FINDINGS: Uterus: The uterus is enlarged, anteverted and measures 14.6 x 8.0 x 9.4 cm. FIBROIDS: There are 3 fibroids seen. 1. Location: Lower body, myometrial. Size: 7.8 x 6.5 x 6.8 cm, previously measured 6.0 x 7.7 x 6.7 cm. 2. Location: Fundal, subserosal Size: 7.3 x 7.6 x 8.5 cm, previously measured 7.4 x 7.3 x 8.2 cm. 3. Location: Posterior body, subserosal Size: 2.4 x 1.8 x 2.2 cm, previously measured 2.6 x 2.1 x 2.8 cm. The endometrial thickness is 0.5 cm. Both ovaries are of normal size and echogenicity The right ovary measures 4.2 x 2.0 x 3.0 cm. Volume 13.2 mL. The right ovary contains a 1.9 x 1.3 x 1.7 cm follicle, normal finding. The left ovary measures 3.0 x 2.5 x 2.0 cm. Volume 7.9 mL. Left ovary contains a 2.0 x 1.0 x 1.3 cm follicle, normal finding. US/US pelvic and transvaginal IMPRESSION: Enlarged fibroid uterus. Accounting for technical differences in measurement, no significant interval change in 3 previous seen noted fibroids. The appearance of the ovaries is within normal limits.
== END 2023-02-14 11:09 | disposition home or self-care (01) ==
LOC: HO.US 11:08
PROVIDERS: PCP Physician Assistant; Visit Provider Obstetrics & Gynecology
DX: D21.9 Benign neoplasm of connective and other soft tissue, unspecified (principal)
CPT/HCPCS: 76830; 76856

== ENCOUNTER 2023-03-21 14:10 | Outpatient (AMB) | payer BC, SELFPAY ==
[2023-03-21 14:12] VITALS: BP 126/80; PULSE 72; O2SAT 98; BMI 31.9
--- NOTE | 2023-03-21 14:12 | A.OFFPC_ITS ---
Vital Signs 03/21/23 14:12 Height 5 ft 5 in Weight 192 lb BMI 31.9 BP 126/80 Blood Pressure Location Lt brachial Position Sitting Pulse 72 Pulse Source Pulse Oximeter Pulse Oximetry (%) 98 Oxygen Delivery Method Room Air Intake Visit Reasons: est care from [place]/ [facility] follow up Intake Note: Patient is here to establish care and medication follow up. Allergies No Known Allergies Allergy (Verified 03/21/23 14:33) Medication List - Last Reconciled 03/21/23 by STACY Barrios norethindrone (contraceptive) 0.35 mg PO DAILY Tobacco use date assessed: 03/21/23 Dental Screening Dental Screen Date: 03/21/23 Did you have a dental visit in the last 12 months?: Yes Did you have a dental problem in the last 6 months where you did not have access to dental care?: No Was dental information given to patient?: Patient has dentist HPI est care from [place]/ [facility] follow up HPI Details Patient is a 37-year-old female who presents today for an office visit to review phentermine for weight loss. Patient of FRITZ Ochoa. medical history significant for ovarian cyst-followed by Dr. Schmidt, left knee pain, obesity. Patient reports when she was on phentermine about 4 months ago she lost about 5 lb. Patient reports that her appetite was slightly suppressed. Patient also saw reduction furnace operator helper once and then life got busy and she lost contact, will follow- up on this, patient would like to go back to dietitian. Patient reports that she mostly cook food at home, she reports eating [employer] maybe once monthly. Patient would like refill on phentermine. [facility] Medical History Allergic rhinitis Surgical History H/O plastic surgery No history of previous surgery Family History Father HTN (hypertension) Mother HTN (hypertension) Maternal Grandmother Uterine cancer Social History Housing: House Alcohol intake: current Alcohol intake frequency: holidays/special occasions only Patient Tobacco Use Status: Never used Tobacco e-Cigarette/Vaping Use: Never Used Second Hand Smoke Exposure: No service: No Current occupational status: employed Current occupation: [employer] Gender identity: Female Cognitive needs: No Hearing needs: No Vision needs: No Female Reproductive History Menstrual Age of Menarche: 12 Questionnaire PHQ-9 Over the last 2 weeks, how often have you been bothered by any of the following problems? 1. Little interest or pleasure in doing things: not at all 2. Feeling down, depressed, or hopeless: not at all 3. Trouble falling or staying asleep, or sleeping too much: not at all 4. Feeling tired or having little energy: not at all 5. Poor appetite or overeating: not at all 6. Feeling bad about yourself - or that you are a failure or have let yourself or your family down: not at all 7. Trouble concentrating on things, such as reading the newspaper or watching television: not at all 8. Moving or speaking so slowly that other people could have noticed. Or the opposite - being so fidgety or restless that you have been moving around a lot more than usual: not at all 9. Thoughts that you would be better off or of hurting yourself in some way: not at all Total score: 0 Depression Screening Interpretation: Negative 90219 - PHQ-9 Billing: Yes Source: Developed by Drs. Tyler Stanton, Anny العلي, Stanley Padilla and colleagues, with an educational maria ines from [employer]. Thrive Questionnaire Date Thrive assessed: 11/14/22 AUDIT C Alcohol Use Questionnaire (AUDIT-C) 1. How often do you have a drink containing alcohol?: Monthly or less 2. How many drinks containing alcohol do you have on a typical day when you are drinking?: 1 or 2 Total Score: 1 Score Reviewed/Action Taken: No OMARI-7 AMB Questionnaire OMARI-7 Date OMARI - 7 assessed: 03/21/23 Feeling nervous, anxious, or on edge: 1 = Several days Not being able to stop or control worryin = Not at all Worrying too much about different things: 0 = Not at all Trouble relaxin = Not at all Being so restless that it is hard to sit still: 0 = Not at all Becoming easily annoyed or irritable: 0 = Not at all Feeling afraid as if something awful might happen: 0 = Not at all Total OMARI-7 score (0-4 normal; 5-9 mild; 10-14 moderate; 15-21 severe): 1 Source: Developed by Drs. Tyler Stanton, Anny العلي, Stanley Padilla and colleagues, with an educational maria ines from [employer]. OMARI-7 Assessment Billing OMARI-7 Assessment Tool: OMARI-7 Assessment 99893 Review of Systems Const Denies body aches, Denies chills and Denies fever(s) ENT Denies dizziness, Denies otalgia, Denies nasal discharge, Denies sinus pain and Denies sore throat Card Denies chest pain, Denies lightheadedness and Denies dyspnea Resp Denies dyspnea and Denies wheezing GI Denies abdominal pain Denies dysuria Musc Denies myalgias Skin/Breast Denies rash Neuro Denies dizziness Aller/Immun Denies wheezing Physical exam (Primary Care) Vital Signs: Last Vital Signs Pulse 72 03/21/23 14:12 BP 126/80 03/21/23 14:12 Pulse Ox 98 03/21/23 14:12 Oxygen Delivery Method Room Air 03/21/23 14:12 BMI result Body Mass Index 31.9 Tobacco/Smoking Status: Tobacco use Status Tobacco use date assessed 03/21/23 03/21/23 14:15 Patient Tobacco Use Status Never used Tobacco 03/21/23 14:15 e-Cigarette/Vaping Use Never Used 03/21/23 14:15 PHQ-9: PHQ-9 Score PHQ-9: Total score 0 03/21/23 14:24 Depression Screening Interpretation: Negative Thrive Assessment: Date of Thrive Assessment Date Thrive assessed 11/14/22 03/21/23 14:15 Const General: cooperative and no acute distress Orientation/consciousness: patient oriented x3 HENMT Head: Yes normocephalic and Yes atraumatic Ears: TM's normal bilaterally Mouth: oropharynx normal and moist mucous membranes Throat: Yes posterior oropharynx normal Eyes General: appearance normal, both eyes and all related structures Neck Neck: Yes normal visual inspection and Yes full ROM Resp Effort & Inspection: normal respiratory effort and able to speak in complete sentences Auscultation: clear to auscultation bilaterally, no crackles, no rales, no rhonchi and no wheezes Cardio Rate: regular rate Rhythm: regular rhythm Heart sounds: S1 normal heart sound present and S2 normal heart sound present GI Palpation (GI): Soft to palpation Auscultation: normal bowel sounds Skin General skin exam: no rashes or lesions noted Neuro General: patient oriented x3 Gait exam (Neuro): Normal gait present Extrem General: Yes full ROM and No edema Assessment and Plan Assessment & Plan (1) Weight gain: Code(s): R63.5 - Abnormal weight gain Plan: Same as below (2) Obesity (BMI 30.0-34.9): Code(s): E66.9 - Obesity, unspecified Plan: Continue healthy food choices and exercise as tolerated Will follow-up on reduction furnace operator helper referral Phentermine sent for 28 days - possible adverse reactions reviewed with the patient, patient reports she did not have side effects last time she was on this medication Follow-up with PCP in 6 months for PE or sooner as needed Patient agreed with the plan Medications: Refilled phentermine must administer 30 minutes before or 1-2 hours after breakfast 37.5 mg PO DAILY 28 days 28 caps 0RF E66.09 - Other obesity due to excess calories, Z68.30 - Body mass index [BMI] 30.0-30.9, adult Coding Level of Care Code Est Pt Level 3 (78253) Diagnoses Weight gain R63.5 Obesity (BMI 30.0-34.9) E66.9 Additional Codes OMARI-7 Assessment Billing - OMARI-7 Assessment Tool: OMARI-7 Assessment [id number] ([id number])
== END 2023-03-21 14:48 | disposition home or self-care (01) ==
PROVIDERS: PCP Nurse Practitioner Family; Visit Provider Nurse Practitioner Family
DX: E66.9 Obesity, unspecified (principal); Z68.30 Body mass index [BMI] 30.0-30.9, adult
CPT/HCPCS: 99213

== ENCOUNTER 2023-03-22 10:51 | Outpatient (REF) | payer BC, SELFPAY ==
[2023-03-22 17:46] LABS: CT PCR NOT DETECTED (Not Detect.); NG PCR NOT DETECTED (Not Detect.)
[2023-03-23 14:15] LABS: BV Int Neg Control Negative (Negative); BV Int Pos Control Positive (Positive)
== END 2023-03-22 10:52 | disposition home or self-care (01) ==
LOC: HO.LNP 10:51
PROVIDERS: PCP Physician Assistant; Visit Provider Obstetrics & Gynecology
DX: N76.0 Acute vaginitis (principal); B96.89 Other specified bacterial agents as the cause of diseases classified elsewhere; D25.9 Leiomyoma of uterus, unspecified
CPT/HCPCS: 0353U; 87480; 87510; 87660

== ENCOUNTER 2023-03-22 10:51 | Outpatient (AMB) | payer BC, SELFPAY ==
--- NOTE | 2023-03-22 10:56 | MHC.OFFVIS ---
Intake Vital Signs 03/22/23 10:59 Height 5 ft 5 in Weight 191 lb 12.835 oz BMI 31.9 BP 118/74 Intake Visit Reasons: US Follow up Medical Insurance Biller Required: No Information Interpreted: non-clinical & clinical Accompanied by: Self / Same As Patient Allergies No Known Allergies Allergy (Verified 03/22/23 10:59) Is last menstrual period known: Yes Last menstrual period: 03/05/23 HPI HPI Comments History of Present Illness Details Presenting for follow-up ultrasound regarding previously identified myomas on ultrasound. The patient is doing well with no complaints, no abnormal bleeding, on control pills, pressure symptoms or pelvic pain. Pelvic ultrasound done recently showed the following: COMPARISON: Pelvic ultrasound 10/02/2022 TECHNIQUE: Ultrasound of the pelvis is performed using both transabdominal and transvaginal transducers along with Doppler. Transvaginal imaging is performed due to inadequate visualization transabdominally. FINDINGS: Uterus: The uterus is enlarged, anteverted and measures 14.6 x 8.0 x 9.4 cm. FIBROIDS: There are 3 fibroids seen. 1. Location: Lower body, myometrial. Size: 7.8 x 6.5 x 6.8 cm, previously measured 6.0 x 7.7 x 6.7 cm. 2. Location: Fundal, subserosal Size: 7.3 x 7.6 x 8.5 cm, previously measured 7.4 x 7.3 x 8.2 cm. 3. Location: Posterior body, subserosal Size: 2.4 x 1.8 x 2.2 cm, previously measured 2.6 x 2.1 x 2.8 cm. The endometrial thickness is 0.5 cm. Both ovaries are of normal size and echogenicity The right ovary measures 4.2 x 2.0 x 3.0 cm. Volume 13.2 mL. The right ovary contains a 1.9 x 1.3 x 1.7 cm follicle, normal finding. The left ovary measures 3.0 x 2.5 x 2.0 cm. Volume 7.9 mL. Left ovary contains a 2.0 x 1.0 x 1.3 cm follicle, normal finding. US/US pelvic and transvaginal IMPRESSION: Enlarged fibroid uterus. Accounting for technical differences in measurement, no significant interval change in 3 previous seen noted fibroids. The appearance of the ovaries is within normal limits. The patient is complaining of vaginal discharge associated with foul odor [facility] Medical History Allergic rhinitis Surgical History H/O plastic surgery Family History Father HTN (hypertension) Mother HTN (hypertension) Maternal Grandmother Uterine cancer Social History Housing: House Alcohol intake: current Alcohol intake frequency: holidays/special occasions only Patient Tobacco Use Status: Never used Tobacco e-Cigarette/Vaping Use: Never Used Second Hand Smoke Exposure: No service: No Current occupational status: employed Current occupation: [employer] Gender identity: Female Cognitive needs: No Hearing needs: No Vision needs: No Female Reproductive History Menstrual Age of Menarche: 12 Date of last menstrual period: 03/05/23 Review of Systems Const All systems reviewed & are unremarkable except as noted in HPI and below Reports as per HPI and Reports no additional complaints GI Reports no additional complaints Reports no additional complaints Physical Exam Vital Signs: Last Vital Signs BP 118/74 03/22/23 10:59 BMI result Body Mass Index 31.9 General: Yes no CVA tenderness External Female Exam: normal external appearance and normal appearance of the urethra Speculum Exam - Vagina: normal appearance of the vagina, normal palpation, no lesions and no masses Speculum Exam - Cervix: normal appearance of the cervix, normal palpation, no lesions, no masses and nontender Bimanual exam- vagina & uterus: normal bimanual exam, normal palpation, normal palpation, uterine shape normal, No Cervical tenderness present, non-tender and enlarged Bimanual Exam- Adnexa, other: normal adnexae Back/Spine/Pelvis Back: no CVA tenderness Assessment & Plan Assessment & Plan (1) Uterine myoma: Code(s): D25.9 - Leiomyoma of uterus, unspecified Plan: Discussed with the patient the findings on pelvic ultrasound & the risk of myosarcoma; discussed with the patient the options of treatment including expectant management versus hysterectomy; the pros and cons, risks benefits of each approach were discussed with the patient including the fact that in cases of myosarcoma, surgical treatment can lead to early diagnosis and positively affects the prognosis; after further discussion, the patient decided to proceed with expectant management. Will repeat pelvic ultrasound in 6 months. Instructions given to patient to call in case any of the following occurs: pressure symptoms, abnormal uterine bleeding, pelvic pain; and to schedule a 6 months ultrasound follow-up appointment for reassessment . All questions answered, the patient verbalized understanding and agreed with the plan . (2) Bacterial vaginosis: Code(s): N76.0 - Acute vaginitis; B96.89 - Other specified bacterial agents as the cause of diseases classified elsewhere Plan: GC and chlamydia cultures with BV panel taken. Will treat with Flagyl 500 mg p.o. b.i.d. x 7 days, Instructions given to the patient to refrain from sexual activity or to use condoms consistently and correctly during the BV treatment regimen, not to douch, it might increase the risk for relapse, and to call if symptoms persist or recur. Orders: Orders US pelvic and transvaginal Today D25.9 - Leiomyoma of uterus, unspecified MM screening mammo BI Today Z12.31 - Encounter for screening mammogram for malignant neoplasm of breast Medications: New metronidazole 500 mg PO BID 7 days 14 tabs 0RF Coding Level of Care Code Est Pt Level 3 (72176) Diagnoses Uterine myoma D25.9 Bacterial vaginosis N76.0; B96.89
[2023-03-22 10:59] VITALS: BP 118/74; BMI 31.9
== END 2023-03-22 11:35 | disposition home or self-care (01) ==
PROVIDERS: PCP Physician Assistant; Visit Provider Obstetrics & Gynecology
DX: D25.9 Leiomyoma of uterus, unspecified (principal); N76.0 Acute vaginitis; B96.89 Other specified bacterial agents as the cause of diseases classified elsewhere
CPT/HCPCS: 99213

== ENCOUNTER 2023-08-02 08:47 | Emergency (ER) | payer OTHER, SELFPAY ==
[2023-08-02 08:57] VITALS: BP 140/95; PULSE 100; RESP 20; TEMP 37.4; O2SAT 96; BMI 30.8
[2023-08-02 10:28] LABS: IDNOW Serial# 152EDE1D
[2023-08-02 10:29] LABS: COVID-19 Test Positive (Negative)
--- NOTE | 2023-08-02 10:35 | ED.URI ---
HPI - URI/Sore Throat General Chief Complaint: Upper Respiratory Symptoms Stated Complaint: SOB, throat pain Time Seen by Provider: 08/02/23 09:06 Source: patient, RN notes reviewed and old records reviewed Mode of arrival: ambulatory History of Present Illness HPI Narrative: 38-year-old female with a past medical history of allergic rhinitis presenting to the ED complaining of chills, myalgias, fatigue, sore throat, dry cough x few days. Denies sick contacts, travel, SOB, CP, abdominal pain Related Data Previous Rx's Medication Instructions Recorded norethindrone (contraceptive) 0.35 0.35 mg PO DAILY #84 tabs 07/19/22 mg tablet phentermine 37.5 mg capsule 37.5 mg PO DAILY 28 days #28 caps 03/21/23 metronidazole 500 mg tablet 500 mg PO BID 7 days #14 tabs 03/22/23 Allergies Allergy/AdvReac Type Severity Reaction Status Date / Time No Known Allergies Allergy Verified 06/27/23 15:05 Review of Systems Review of Systems: Constitutional: No Fever, No Chills ENT/Mouth: No Ear Pain, + Nasal Congestion, No Sinus Pain, No Hoarseness, +sore throat, + Rhinorrhea, No Swallowing Difficulty Cardiovascular: No Chest Pain, No SOB Respiratory: +Cough, No Sputum, No Wheezing Gastrointestinal: No Nausea, No Vomiting, No Diarrhea, No Constipation, No Abdominal pain Musculoskeletal: No joint pain, + Myalgias, No Joint Swelling Skin: No Skin Lesions, No rash Neuro: No Weakness Yes all other systems are reviewed and are negative Constitutional: Constitutional: Reports as per [facility] Past Medical History Attestation statement: The following information was validated with the patient. Source: old records reviewed Medical History Allergic rhinitis Surgical History H/O plastic surgery Family History Family History Father HTN (hypertension) Mother HTN (hypertension) Maternal Grandmother Uterine cancer Social History Social History Housing: House Alcohol intake: current Alcohol intake frequency: holidays/special occasions only Patient Tobacco Use Status: Never used Tobacco e-Cigarette/Vaping Use: Never Used Second Hand Smoke Exposure: No Advance Directives: No service: No Current occupational status: employed Current occupation: [employer] Gender identity: Female Cognitive needs: No Hearing needs: No Vision needs: No Physical Exam Vital Signs: Vital Signs: Last Vital Signs Temp 99.3 F 08/02/23 08:57 Pulse 100 08/02/23 08:57 Resp 20 08/02/23 08:57 BP 140/95 H 08/02/23 08:57 Pulse Ox 96 08/02/23 08:57 O2 Del Method Room Air 08/02/23 08:57 BMI result Body Mass Index 30.8 Const: General: cooperative, healthy appearing and no acute distress Orientation/consciousness: patient oriented x3 Limitations: no limitations HEENT: Head: Yes normal to inspection and Yes atraumatic Ears: hearing grossly normal bilaterally General nose exam: Normal external nose present Face and sinus: Yes normal facial exam Throat: Yes uvula midline, No peritonsillar mass, Yes posterior oropharynx abnormal (Erythematous), No uvula laterally displaced and No uvular edema Eyes: General: appearance normal, both eyes and all related structures EOM: EOMs intact bilaterally Neck: Neck: Yes normal visual inspection and Yes no meningeal signs Resp: Effort & Inspection: normal respiratory effort, no respiratory distress and no stridor Auscultation: clear to auscultation bilaterally and no wheezes Cardio: Rate: regular rate Heart sounds: S1 normal heart sound present and S2 normal heart sound present Skin: Rashes: no rashes Wounds: no wounds Neuro: General: patient oriented x3, tone normal and no meningeal signs Cranial nerves: Yes CN's II-XII intact bilaterally Gait exam (Neuro): Normal gait present Extrem: General: Yes normal to inspection Course Course Course Narrative: -COVID-19 positive -flu and strep negative Results discussed with patient including worrisome signs and symptoms and strict return precautions, and when to return to the emergency department. They verbalized understanding and feel safe for discharge at this time. Medical Decision Making Medical Decision Making MDM Narrative: 38-year-old female with a past medical history of allergic rhinitis presenting to the ED complaining of chills, myalgias, fatigue, sore throat, dry cough x few days. On exam vital signs stable, NAD, nontoxic appearing, posterior oropharyngeal erythema noted. Uvula midline, talking complete sentences, lungs CTA. Concern for viral illness versus strep pharyngitis. No evidence of OFFICE SERVICES ASSISTANT/retropharyngeal abscess. Lower suspicion for pneumonia/ACS or PE Plan: Viral testing, rapid strep Please refer to course for remaining clinical decision making, interpretation of labs/imaging results, and discussions with consultants and/or family members. Differential Diagnosis Differential Diagnoses: The differential diagnosis associated with the presentation includes As above Lab Data MDM Lab Attestation statement: I reviewed the patient's lab results. Labs: Lab Results 08/02/23 Range/Units 09:36 COVID-19 (YAZ) Positive A (Negative) COVID-19 Clin Com See Note Influenza Type A (ANDRA) Negative (Negative) Influenza Type B (ANDRA) Negative (Negative) Influenza A & B Note See Note S. pyogenes GrpA ANDRA Negative (Negative) External Record Review External record reviewed: Inpatient record, Office record, Outpatient record, Prior outpatient labs, Prior outpatient radiology, Primary care record and Outside ED record Tests considered The following testing was considered but not selected: As above Discharge Plan Discharge Clinical Impression: COVID-19 Patient Disposition: Home, Self-Care Instructions: COVID-19 (Coronavirus Disease 2019) (ED) Additional Instructions: YOU HAVE COVID-19 At this time you will be okay for discharge. Please self isolate for 5 days. Do not expose yourself to others. You may not go to work or school. Please continue to follow cold instructions and wash your hands frequently. You may take Tylenol / Motrin as directed on the bottle for pain or fever. If you have constant or persistent shortness of breath, fever unresolved with medications, chest pain, or your unable to eat or drink please return to the ED CDC Guidelines for home isolation: - Stay away from others - WEAR A MASK if you are sick AND STAY HOME - Cover your mouth and nose with a tissue when you cough or sneeze. Dispose of tissues in a lined trash can and wash your hands immediately with soap and water for at least 20 seconds. If soap and water are not available, clean hands with alcohol-based hand conventional underwriter that contains at least 60% alcohol. - Clean your hands often with soap and water for at least 20 seconds - Avoid touching your eyes, nose and mouth with unwashed hands - Do not share dishes, drinking glasses, cups, eating utensils, towels, or bedding with other people in your home. After using these items, wash them thoroughly with soap and water or put in the frame table operator helper. - Clean high-touch surfaces in your isolation area ( sick room and bathroom) every day; let a caregiver clean and disinfect high-touch surfaces in other areas of the home. Clean the area or item with soap and water or another detergent if it is dirty. Then, use a household disinfectant. - Limit contact with pets and animals: If you must care for a pet, wash your hands before and after interacting with them) Prescriptions: No Action phentermine 37.5 mg capsule 37.5 mg PO DAILY 28 Days Qty: 28 0RF Rx Instructions: must administer 30 minutes before or 1-2 hours after breakfast norethindrone (contraceptive) 0.35 mg tablet 0.35 mg PO DAILY Qty: 84 4RF metronidazole 500 mg tablet 500 mg PO BID 7 Days Qty: 14 0RF Referrals: Ramses Ochoa PA-C [Primary Care Provider] - Stand Alone Forms: Work/School Release
[2023-08-02 10:38] LABS: IDNOW Serial# 58CA691E; Influenza A Negative (Negative); Influenza B2 Negative (Negative)
[2023-08-02 10:48] LABS: IDNOW Serial# 6674DD1D; Strep A Nucleic Acid Negative (Negative)
[2023-08-02 11:04] VITALS: PULSE 95; RESP 20; TEMP 37.2; O2SAT 100
== END 2023-08-02 11:06 | disposition home or self-care (01) ==
PROVIDERS: Emergency Provider Emergency Medicine; PCP Physician Assistant
DX: U07.1 COVID-19 (principal); J02.9 Acute pharyngitis, unspecified
CPT/HCPCS: 87502; 87635; 87651; 99283; 99284

== ENCOUNTER 2024-02-20 11:06 | Outpatient (REF) | payer OTHER, SELFPAY ==
--- NOTE | ~2024-02-20 | US_ITS ---
EXAMINATION: US PELVIS CLINICAL INFORMATION: Fibroids. COMPARISON: 02/14/2023. TECHNIQUE: Ultrasound of the pelvis is performed using both transabdominal and transvaginal transducers along with Doppler. Transvaginal imaging is performed due to inadequate visualization transabdominally. FINDINGS: The uterus is anteverted and measures 19.7 x 8.3 x 8.7 cm, volume of 744.8 mL. 7.8 x 8.6 x 8.4 cm lower body fibroid, previously 7.8 x 6.5 x 6.8 cm 9.4 x 8.8 x 10.1 cm fundal fibroid, previously 7.3 x 7.6 x 8.5 cm 2.3 x 2.0 x 2.4 cm posterior subserosal fibroid, previously 2.4 x 1.8 x 2.2 cm 1.8 x 1.1 x 1.6 cm fibroid was not previously imaged. No significant free fluid. Bilateral ovaries and uterus were difficult to visualize on transvaginal ultrasound imaging due to large fibroids and were better visualized on transabdominal ultrasound images. Right ovary measures 4.5 x 4.1 x 1.9 cm, volume 18.4 mL. Left ovary measures 4.8 x 2.7 x 1.8 cm, volume 12.2 mL. 1.3 x 1.2 x 1.2 cm right ovarian cyst and 2.0 x 1.2 x 2.0 cm left ovarian cyst, likely physiologic. There is no specific indication for additional imaging at this time. No significant free fluid. US/US pelvic and transvaginal IMPRESSION: Enlarged fibroid uterus. Electronically signed by: Richa Mccray MD 03/05/2024 10:22 AM EDT
== END 2024-02-20 11:07 | disposition home or self-care (01) ==
LOC: HO.US 11:06
PROVIDERS: PCP Physician Assistant; Visit Provider Obstetrics & Gynecology
DX: D25.9 Leiomyoma of uterus, unspecified (principal)
CPT/HCPCS: 76830; 76856

== ENCOUNTER 2024-03-05 10:11 | Outpatient (AMB) | payer OTHER, SELFPAY ==
--- NOTE | 2024-03-05 10:24 | A.OFFVIS_ITS ---
Vital Signs 03/05/24 10:25 Height 5 ft 5 in Weight 182 lb 15.739 oz BMI 30.4 BP 130/80 Intake Visit Reasons: annual/us results Java Integration Developer Required: No Information Interpreted: non-clinical & clinical Child Welfare Specialist: Child Welfare Specialist Present (Charity MCDONALD) Accompanied by: Self / Same As Patient Allergies No Known Allergies Allergy (Verified 03/05/24 10:28) HPI Comments Details: Presenting for annual exam. Complaining of pelvic pressure no pain and no heavy bleeding, the patient is on norethindrone 1 tablet p.o. q.d. and is interested in future fertility Last Pap/HPV was in 07/24 was negative No previous screening Mammogram Pelvic ultrasound done on 02/22 showed the following: Ultrasound of the pelvis is performed using both transabdominal and transvaginal transducers along with Doppler. Transvaginal imaging is performed due to inadequate visualization transabdominally. FINDINGS: The uterus is anteverted and measures 19.7 x 8.3 x 8.7 cm, volume of 744.8 mL. 7.8 x 8.6 x 8.4 cm lower body fibroid, previously 7.8 x 6.5 x 6.8 cm 9.4 x 8.8 x 10.1 cm fundal fibroid, previously 7.3 x 7.6 x 8.5 cm 2.3 x 2.0 x 2.4 cm posterior subserosal fibroid, previously 2.4 x 1.8 x 2.2 cm 1.8 x 1.1 x 1.6 cm fibroid was not previously imaged. No significant free fluid. Bilateral ovaries and uterus were difficult to visualize on transvaginal ultrasound imaging due to large fibroids and were better visualized on transabdominal ultrasound images. Right ovary measures 4.5 x 4.1 x 1.9 cm, volume 18.4 mL. Left ovary measures 4.8 x 2.7 x 1.8 cm, volume 12.2 mL. 1.3 x 1.2 x 1.2 cm right ovarian cyst and 2.0 x 1.2 x 2.0 cm left ovarian cyst, likely physiologic. There is no specific indication for additional imaging at this time. [facility] Medical History Allergic rhinitis Surgical History H/O plastic surgery Family History Father HTN (hypertension) Mother HTN (hypertension) Maternal Grandmother Uterine cancer Social History Housing: House Alcohol intake: current Alcohol intake frequency: holidays/special occasions only Patient Tobacco Use Status: Never used Tobacco e-Cigarette/Vaping Use: Never Used Second Hand Smoke Exposure: No service: No Current occupational status: employed Current occupation: [employer] Gender identity: Female Cognitive needs: No Hearing needs: No Vision needs: No Female Reproductive History Menstrual Age of Menarche: 12 Total pregnancies: 0 Date of last pap smear: 07/19/22 Review of Systems Const All systems reviewed & are unremarkable except as noted in HPI and below Card Reports as per HPI Resp Reports as per HPI GI Reports as per HPI and Reports no additional complaints Reports as per HPI Physical Exam Vital Signs: Last Vital Signs BP 130/80 03/05/24 10:25 BMI result Body Mass Index 30.4 Const General: cooperative, healthy appearing and comfortable Chest Chest palpation & inspection: normal inspection of the chest and normal palpation of entire chest wall Breast/axilla inspection: normal inspection of the breasts and normal inspection of the axillae Breast/axilla palpation: normal palpation of the breasts, normal palpation of the axillae and no axillary lymphadenopathy General: Yes bladder normal to palpation and Yes no CVA tenderness External Female Exam: No lesion Speculum Exam - Vagina: normal appearance of the vagina, normal palpation, normal vaginal discharge and not erythematous Speculum Exam - Cervix: normal appearance of the cervix and normal palpation Bimanual exam- vagina & uterus: normal bimanual exam, normal palpation, uterine size normal, bladder normal to palpation, consistency normal and normal palpation Bimanual Exam- Adnexa, other: normal adnexae, no masses and no tenderness Back/Spine/Pelvis Back: no CVA tenderness Assessment & Plan Assessment & Plan (1) Uterine myoma: Code(s): D25.9 - Leiomyoma of uterus, unspecified Category: Medical Plan: Discussed with the patient the results of the ultrasound and the size of the myomas. Discussed with the patient risk of myosarcoma and symptoms that are caused by myomas including but not limited to pelvic pain, pressure symptoms, abnormal uterine bleeding. In addition discussed with the patient options of treatment for myomas including: Serial ultrasounds periodically to follow-up on the size of the myoma while targeting the treatment against fibroids related symptoms ( control pills, Mirena IUD, progesterone treatment, GnRH agonist/antagonist, uterine artery embolization or endometrial ablation) versus surgical treatment including hysterectomy and /or myomectomy. Since the patient is interested in future fertility, explained to the patient that uterine artery embolization, endometrial ablation and hysterectomy will be contraindicated in her case and discussed with the patient the implication of myomectomy on future pregnancies and deliveries. All pros and cons, risks and benefits of all options were discussed with the patient. The patient is interested in being referred to [facility] for a 2nd opinion and counseling regarding possible myomectomy. Will refer to [facility]. Instructed the patient to call our office back in case a referral appointment is not scheduled, missed or canceled so that we will assist on rescheduling another appointment, the patient verbalized understanding agreed with the plan. (2) Well woman exam with routine gynecological exam: Code(s): Z01.419 - Encounter for gynecological examination (general) (routine) without abnormal findings Category: Medical Plan: Cotesting at indicated this year. Mammogram ordered. Counseled the patient about the recommended dietary allowance of 1000 mg of Calcium & 600 IU of vitamin D. The patient was instructed to perform monthly self-breast exams and to schedule an annual exam in a year; All questions answered and the patient verbalized understanding. Instructed the patient to schedule annual exam in a year Orders: Orders MM tomosynthesis screening BI Today Z12.31 - Encounter for screening mammogram for malignant neoplasm of breast Medications: Discontinued benzonatate Discontinued Reason: Patient Completed Course 200 mg PO TID 5 days 15 caps 0RF R05.9 - Cough, unspecified metronidazole Discontinued Reason: Patient Completed Course 500 mg PO BID 7 days 14 tabs 0RF Coding Level of Care Code Est Pt Prev Care 40-64y(78194) Diagnoses Uterine myoma D25.9 Well woman exam with routine gynecological exam Z01.419
[2024-03-05 10:25] VITALS: BP 130/80; BMI 30.4
== END 2024-03-05 12:24 | disposition home or self-care (01) ==
LOC: HO.HWS 10:11
PROVIDERS: PCP Physician Assistant; Visit Provider Obstetrics & Gynecology
DX: Z01.419 Encounter for gynecological examination (general) (routine) without abnormal findings (principal); D25.9 Leiomyoma of uterus, unspecified
CPT/HCPCS: 99396

== ENCOUNTER → 2024-03-05 10:11 | Outpatient (BNVA) | payer OTHER, SELFPAY | PROVIDERS: PCP Physician Assistant; Visit Provider Obstetrics & Gynecology | DX: Z01.419 Encounter for gynecological examination (general) (routine) without abnormal findings (principal); D25.9 Leiomyoma of uterus, unspecified | CPT/HCPCS: 99396 ==

== ENCOUNTER 2024-03-20 22:42 | Emergency (ER) | payer OTHER, SELFPAY ==
[2024-03-20 23:01] VITALS: BP 142/89; PULSE 75; RESP 20; TEMP 37; O2SAT 98; BMI 30.8
[2024-03-21 01:38] VITALS: BP 117/81; PULSE 72; RESP 18; TEMP 36.8; O2SAT 98
--- NOTE | 2024-03-21 02:45 | ED_ITS ---
HPI - Wound/Laceration General Chief Complaint: Wound/Laceration Stated Complaint: finger laceration Time Seen by Provider: 03/21/24 02:12 Source: patient Mode of arrival: ambulatory Limitations: no limitations History of Present Illness ED Provider: Dr. Phoebe Tomlin HPI narrative: Patient comes to the emergency room complaining of a laceration to the left fingers on the middle and index finger. Patient states that she was washing dishes, a glass cup broke and she has lacerated accidentally her fingers. Related Data Previous Rx's ?Medication ?Instructions ?Recorded phentermine 37.5 mg capsule 37.5 mg PO DAILY 28 days #28 caps 03/21/23 norethindrone (contraceptive) 0.35 0.35 mg PO DAILY #84 tabs 01/21/24 mg tablet Allergies Allergy/AdvReac Type Severity Reaction Status Date / Time No Known Allergies Allergy Verified 03/20/24 23:03 Review of Systems Review of Systems: Constitutional : No Weight loss, No Fever, No Chills, No Night Sweats, No Fatigue, No Malaise ENT/Mouth : No Hearing loss, No Ear Pain, No Nasal Congestion, No Sinus Pain, No Hoarseness, No sore throat, No Rhinorrhea, No Swallowing Difficulty Eyes: No Eye Pain, No Swelling, No Redness, No Foreign Body, No Discharge, No Vision Changes Cardiovascular : No Chest Pain, No SOB, No Dyspnea on Exertion, No Orthopnea, No Edema, No Palpitations Respiratory : No Cough, No Sputum, No Wheezing, No Smoke Exposure, No Dyspnea Gastrointestinal : No Nausea, No Vomiting, No Diarrhea, No Constipation, No abdominal Pain, No Hematochezia, No Melena Genitourinary : no irregular bleeding, No Dysuria, No Urinary Frequency, No Leeroy turia, No Urinary Incontinence, No Urgency, No Flank Pain, No Urinary Flow Changes, No Hesitancy Musculoskeletal : No joint pain, No Myalgias, No Joint Swelling Skin : Complaining of a laceration to the index and middle finger of the left hand palmar aspect Neuro : No Weakness, No Numbness, No Paresthesias, No Loss of Consciousness, No Dizziness, No Headache Psych : No Anxiety/Panic, No Depression, No SI/HI/AH/VH, No Social Issues, Heme/Lymph: No Bruising, No Bleeding,No Lymphadenopathy Endocrine : No Polyuria, No Polydipsia, No Temperature Intolerance [facility] Past Medical History Medical History Allergic rhinitis Surgical History H/O plastic surgery Family History Family History Father HTN (hypertension) Mother HTN (hypertension) Maternal Grandmother Uterine cancer Social History Social History Housing: House Alcohol intake: current Alcohol intake frequency: holidays/special occasions only Patient Tobacco Use Status: Never used Tobacco e-Cigarette/Vaping Use: Never Used Second Hand Smoke Exposure: No Advance Directives: No Advance Directives Information Provided: No service: No Current occupational status: employed Current occupation: [employer] Gender identity: Female Cognitive needs: No Hearing needs: No Vision needs: No Physical Exam Vital Signs: Vital Signs: Last Vital Signs Temp 98.2 F 03/21/24 01:38 Pulse 72 03/21/24 01:38 Resp 18 03/21/24 01:38 BP 117/81 03/21/24 01:38 Pulse Ox 98 03/21/24 01:38 O2 Del Method Room Air 03/21/24 01:38 BMI result Body Mass Index 30.8 Const: Other: Appearance: Alert. Oriented X3. No acute distress. Eyes: Pupils equal, round and reactive to light. ENT: Pharynx normal. Neck: Normal inspection. Neck supple. No lymph nodes noted. No crepitus CVS: Normal heart rate and rhythm. Pulses normal. Normal S1 and S2 Respiratory: No respiratory distress. Breath sounds normal. No Wheezing. No rales Abdomen: Soft and nontender. No rigidity. No distention. Skin: Laceration to the index and the middle finger, 5 stitches needed, 2nd laceration glued Extremities: No lower extremity edema. No Lacerations. No Rash Neuro: Oriented X 3. No motor deficit. No sensory deficit. Moving all extremities. No slurred speech. CN 2 through 12 grossly intact Psych: calm, cooperative, normal affect Medical Decision Making Medical Decision Making MDM Narrative: Patient is up-to-date with her tetanus shots, last Tdap given last year Procedures Laceration Laceration 1: Site: hand (Middle finger) Side (If applicable): left Size (cm): 1.5 Description: linear Depth: simple, single layer Local Anesthetic: lidocaine 1% Amount of anesthesia used (mL): 4 Pre-repair: wound explored Skin layer closed with: nylon Size (cm): 5-0 Number of sutures: 5 Technique: simple, interrupted Discharge Plan Discharge Clinical Impression: Laceration of finger Patient Disposition: Home, Self-Care Instructions: Laceration (ED) Additional Instructions: Your stitches need to be removed in 7-10 days. Please follow-up with your primary care physician tomorrow. If you have any worsening or new symptoms, please return to the emergency room or call 911 Prescriptions: No Action norethindrone (contraceptive) 0.35 mg tablet 0.35 mg PO DAILY Qty: 84 0RF phentermine 37.5 mg capsule 37.5 mg PO DAILY 28 Days Qty: 28 0RF Rx Instructions: must administer 30 minutes before or 1-2 hours after breakfast Stand Alone Forms: Work/School Release Print Language: Romansh
[2024-03-21] MEDS: Lidocaine HCl 1 % 20 ML VIAL INFILTRATI (02:48)
[2024-03-21 03:07] VITALS: BP 112/55; PULSE 70; RESP 20; TEMP 36.6; O2SAT 98
== END 2024-03-21 03:09 | disposition home or self-care (01) ==
PROVIDERS: Emergency Provider Emergency Medicine; PCP Physician Assistant
DX: S61.213A Laceration without foreign body of left middle finger without damage to nail, initial encounter (principal); M79.642 Pain in left hand; W26.8XXA Contact with other sharp object(s), not elsewhere classified, initial encounter; Y93.89 Activity, other specified; Y92.89 Other specified places as the place of occurrence of the external cause; Y99.8 Other external cause status
CPT/HCPCS: 12001; 99284

== ENCOUNTER 2024-03-28 08:16 | Outpatient (AMB) | payer OTHER, SELFPAY ==
--- NOTE | 2024-03-28 08:16 | A.OFFVIS_ITS ---
Intake Visit Reasons: Questions about MRI or CT Allergies No Known Allergies Allergy (Verified 03/20/24 23:03) HPI Comments Details: The patient is scheduled tele health visit to discuss possible pelvic MRI to assess the location of her myomas for surgical planning. Patient was referred to [facility] has an appointment scheduled and is on the waiting list for an earlier appointment and is considering switching her health insurance for the ability to be referred to [facility] for surgical management I spent a total of 20 minutes reviewing the chart, talking to the patient via video and documenting in the medical record. [facility] Medical History Allergic rhinitis Surgical History H/O plastic surgery Family History Father HTN (hypertension) Mother HTN (hypertension) Maternal Grandmother Uterine cancer Social History Housing: House Alcohol intake: current Alcohol intake frequency: holidays/special occasions only Patient Tobacco Use Status: Never used Tobacco e-Cigarette/Vaping Use: Never Used Second Hand Smoke Exposure: No service: No Current occupational status: employed Current occupation: [employer] Gender identity: Female Cognitive needs: No Hearing needs: No Vision needs: No Female Reproductive History Menstrual Age of Menarche: 12 Review of Systems Const All systems reviewed & are unremarkable except as noted in HPI and below Reports as per HPI and Reports no additional complaints GI Reports no additional complaints Reports no additional complaints Telehealth Telehealth Telehealth Platform: Telephone Location of provider rendering services: practice address Location of patient: address on file Patient Identification confirmed using: Name, : Yes Telehealth method: video Patient verbally consented to treatment: Yes Patient verbally consented to billing insurance company: Yes Patient informed of any privacy concerns related to visit: Yes Assessment & Plan Assessment & Plan (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 Recommended the patient to defer the ordering of pelvic MRI preoperative you at the institution where her surgery is planned. All questions answered, the patient verbalized understanding and agreed with the plan. Coding Level of Care Code Tele Est Pt Level 1 (43018) Diagnoses Uterine myoma D25.9
== END 2024-03-28 09:26 | disposition home or self-care (01) ==
LOC: HO.HWS 08:16
PROVIDERS: PCP Physician Assistant; Visit Provider Obstetrics & Gynecology
DX: D25.9 Leiomyoma of uterus, unspecified (principal)
CPT/HCPCS: 99211

== ENCOUNTER → 2024-03-28 08:16 | Outpatient (BNVA) | payer OTHER, SELFPAY | PROVIDERS: PCP Physician Assistant; Visit Provider Obstetrics & Gynecology ==

== ENCOUNTER 2024-04-02 14:33 | Outpatient (REF) | payer OTHER, SELFPAY ==
--- NOTE | ~2024-04-02 | MM_ITS ---
EXAMINATION: MM SCREENING DIGITAL BREAST TOMOSYNTHESIS, BILATERAL CLINICAL INFORMATION: Screening. Asymptomatic. COMPARISON: Mammography: Baseline. TECHNIQUE: Digital breast mammography with tomosynthesis is performed in both the craniocaudal and mediolateral oblique views along with computer-aided detection (CAD). FINDINGS: The breasts are heterogeneously dense, which may obscure small masses (ACR BI-RADS breast composition Category c). There are no significant masses, abnormal calcifications, or other abnormalities. MM/MM tomosynthesis screening BI IMPRESSION: No mammographic evidence of malignancy. ASSESSMENT: BI-RADS BI-RADS 1 - Negative RECOMMENDATION: Routine annual mammography screening. 1 year F/U This examination should not preclude the clinical evaluation of a suspicious palpable abnormality. This patient's information was entered into a reminder system with a target due date for their next mammogram. Electronically signed by: Nora Gama DO 04/14/2024 01:51 PM EDT
== END 2024-04-02 14:34 | disposition home or self-care (01) ==
LOC: HO.MAMMO 14:33
PROVIDERS: PCP Physician Assistant; Visit Provider Obstetrics & Gynecology
DX: Z12.31 Encounter for screening mammogram for malignant neoplasm of breast (principal)
CPT/HCPCS: 77063; 77067

== ENCOUNTER → 2024-04-02 14:45 | Outpatient (BNV) | payer OTHER, SELFPAY | PROVIDERS: PCP Physician Assistant; Visit Provider Internal Medicine | DX: Z12.31 Encounter for screening mammogram for malignant neoplasm of breast (principal) | CPT/HCPCS: 77063; 77067 ==

== ENCOUNTER 2024-04-02 15:01 | Emergency (ER) | payer OTHER, SELFPAY ==
[2024-04-02 15:18] VITALS: BP 150/90; PULSE 71; RESP 16; TEMP 36.8; O2SAT 99; BMI 31.8
--- NOTE | 2024-04-02 15:41 | ED.GENADULT ---
HPI - General Adult General Chief complaint: Wound/Laceration Stated complaint: need stitches removed from finger Time Seen by Provider: 04/02/24 15:20 Source: patient Mode of arrival: ambulatory Limitations: no limitations History of Present Illness ED Provider: Derek Massey PA-C HPI narrative: [age] old female history of fibroids, ovarian cyst presents to ED for left middle finger sutures that were placed 10 days ago. Patient states no redness, pus discharge, foul odor, fever, or chills. Patient states complete range of motion of the finger. Related Data Previous Rx's ?Medication ?Instructions ?Recorded phentermine 37.5 mg capsule 37.5 mg PO DAILY 28 days #28 caps 03/21/23 norethindrone (contraceptive) 0.35 0.35 mg PO DAILY #84 tabs 01/21/24 mg tablet Allergies Allergy/AdvReac Type Severity Reaction Status Date / Time No Known Allergies Allergy Verified 04/02/24 15:18 Review of Systems Review of Systems: Left middle finger suture removal Yes all other systems are reviewed and are negative [facility] Past Medical History Medical History Allergic rhinitis Surgical History H/O plastic surgery Family History Family History Father HTN (hypertension) Mother HTN (hypertension) Maternal Grandmother Uterine cancer Social History Social History Housing: House Alcohol intake: current Alcohol intake frequency: holidays/special occasions only Patient Tobacco Use Status: Never used Tobacco e-Cigarette/Vaping Use: Never Used Second Hand Smoke Exposure: No Advance Directives: No Advance Directives Information Provided: No Do you have a plan to hurt others: No Plan service: No Current occupational status: employed Current occupation: [employer] Gender identity: Female Cognitive needs: No Hearing needs: No Vision needs: No Physical Exam ED Vital Signs: Vital Signs - 24 hr 04/02/24 15:18 04/02/24 15:55 Temperature 98.3 F 98.3 F Pulse Rate 71 71 Respiratory Rate 16 16 Blood Pressure 150/90 H 150/90 H Pulse Oximetry 99 99 Oxygen Delivery Method Room Air Room Air BMI result Body Mass Index 31.8 Const General: cooperative, healthy appearing, comfortable, no acute distress, well developed and alert Orientation/consciousness: patient oriented x3 [facility] Head: Yes normal to inspection, Yes No palpable skull fracture present, Yes normocephalic and Yes atraumatic Eyes General: appearance normal, both eyes and all related structures Neck Neck: Yes normal visual inspection, Yes full ROM, Yes no lymphadenopathy, Yes no meningeal signs, Yes trachea midline, Yes supple, No anterior neck swelling and No tender Chest Chest palpation & inspection: normal inspection of the chest and normal palpation of entire chest wall Resp Effort & Inspection: normal respiratory effort and able to speak in complete sentences Auscultation: clear to auscultation bilaterally Cardio Jugular venous distension: no JVD Heart sounds: S1 normal heart sound present and S2 normal heart sound present GI Inspection: Yes normal to inspection Palpation (GI): Soft to palpation, not firm, nontender, no guarding and not rigid General: No CVA tenderness and Yes no CVA tenderness Back/Spine/Pelvis Back: no CVA tenderness, No CVA tenderness and No back tenderness Skin General skin exam: no rashes or lesions noted, elasticity normal and turgor normal Neuro General: patient oriented x3, gait normal, tone normal, moves all extremities, Normal light touch and pain sensation, no meningeal signs, no focal motor deficits, CN's II-XI intact bilaterally and normal sensation to monofilament Extrem General: Yes normal to inspection, Yes full ROM and Yes capillary refill normal Hand/finger images: 1. [address] Negative for erythema, pus discharge, foul odor, hotness, coldness, ecchymosis, or deformity. Capillary refills intact. Rest of extremity normal. Motor/neuro/vascular exam intact. Psych Appearance: grossly normal, well kempt and not disheveled Medical Decision Making Medical Decision Making MDM Narrative: 38-year-old female presents to ED for suture removal. Patient has no complaints. Area cleaned with sterile saline. Five sutures removed. Negative for signs of tendon or nerve injury. Negative for signs of wound infection, tenosynovitis, compartment syndrome, arterial occlusion, or DVT. Patient is playing worrisome signs informed to return to the ED immediately. Differential Diagnosis Differential Diagnoses: The differential diagnosis associated with the presentation includes (Wound infection, suture removal) Admission/Observation Consideration of admission/observation: Escalation of care including admission/observation considered Independent Historian Clinical information obtained from an independent historian. History obtained from or confirmed by: Other (Patient) External Record Review External record reviewed: Other (Prior visits) Discharge Plan Discharge Clinical Impression: Encounter for removal of sutures Patient Disposition: Home, Self-Care Instructions: Stitches Removal (ED) Additional Instructions: Return to the ED immediately for any redness, pus discharge, foul odor, bluish black discoloration, fever, chills, red streaks, or any other concerning symptoms. Recommend follow-up with primary care provider Prescriptions: No Action norethindrone (contraceptive) 0.35 mg tablet 0.35 mg PO DAILY Qty: 84 0RF phentermine 37.5 mg capsule 37.5 mg PO DAILY 28 Days Qty: 28 0RF Rx Instructions: must administer 30 minutes before or 1-2 hours after breakfast Interventions: ED Discharge Assessment Last Done: 04/02/24 15:55 Discharge Date/Time: 04/02/24 15:55 Print Language: Pashto
[2024-04-02 15:55] VITALS: BP 150/90; PULSE 71; RESP 16; TEMP 36.8; O2SAT 99
== END 2024-04-02 15:55 | disposition home or self-care (01) ==
PROVIDERS: Emergency Provider Emergency Medicine; PCP Physician Assistant
DX: Z48.02 Encounter for removal of sutures (principal); S61.213D Laceration without foreign body of left middle finger without damage to nail, subsequent encounter; X58.XXXD Exposure to other specified factors, subsequent encounter
CPT/HCPCS: 99282

== ENCOUNTER 2025-03-25 08:22 | Outpatient (AMB) | payer OTHER, SELFPAY ==
--- NOTE | 2025-03-25 08:23 | MHC.OFFVIS ---
Vital Signs 03/25/25 08:24 Height 5 ft 4 in Weight 184 lb BMI 31.6 BP 110/70 Intake Visit Reasons: annual Starch Dumper Required: No Information Interpreted: non-clinical & clinical Electronic Technologist: Electronic Technologist Present Allergies No Known Allergies Allergy (Verified 03/25/25 08:25) HPI Comments Details: Presenting for annual exam. No complaints. The patient is doing well no pelvic pressure or pain no heavy menstrual cycle any other concerns Last Pap/HPV was negative in 07/24 Last Mammogram was BI-RADS 1 in 04/24 The patient had uterine artery embolization at [facility] 02/11/2025 and had a scheduled three-month follow-up appointment with a follow-up pelvic MRI at six-months [facility] Medical History Allergic rhinitis Surgical History H/O plastic surgery Family History Father HTN (hypertension) Mother HTN (hypertension) Maternal Grandmother Uterine cancer Social History Housing: House Alcohol intake: current Alcohol intake frequency: holidays/special occasions only Patient Tobacco Use Status: Never used Tobacco e-Cigarette/Vaping Use: Never Used Second Hand Smoke Exposure: No service: No Current occupational status: employed Current occupation: [employer] Gender identity: Female Cognitive needs: No Hearing needs: No Vision needs: No Female Reproductive History Menstrual Age of Menarche: 12 Duration of menses: 6-7 days Date of last pap smear: 07/19/22 Date of Mammogram: 04/02/24 Review of Systems Const All systems reviewed & are unremarkable except as noted in HPI and below Card Reports as per HPI Resp Reports as per HPI GI Reports as per HPI and Reports no additional complaints Reports as per HPI Physical Exam Vital Signs: BMI result Body Mass Index 31.6 Const General: cooperative, healthy appearing and comfortable Chest Chest palpation & inspection: normal inspection of the chest and normal palpation of entire chest wall Breast/axilla inspection: normal inspection of the breasts and normal inspection of the axillae Breast/axilla palpation: normal palpation of the breasts, normal palpation of the axillae and no axillary lymphadenopathy Resp Effort & Inspection: normal respiratory effort Auscultation: clear to auscultation bilaterally Percussion: percussion normal Cardio Palpation: normal PMI Rate: regular rate Rhythm: regular rhythm Heart sounds: no murmurs and no rubs Peripheral pulses: Peripheral pulses 2+ throughout GI Inspection: Yes normal to inspection Palpation (GI): Soft to palpation, nontender, no guarding, not rigid and No hepatosplenomegaly present Percussion: Yes normal to percussion Auscultation: normal bowel sounds Rectal Exam - Female: deferred General: Yes bladder normal to palpation External Female Exam: No lesion Speculum Exam - Vagina: normal appearance of the vagina, normal palpation, normal vaginal discharge and not erythematous Speculum Exam - Cervix: normal appearance of the cervix and normal palpation Bimanual exam- vagina & uterus: normal bimanual exam, normal palpation, uterine size normal, bladder normal to palpation, consistency normal and normal palpation Bimanual Exam- Adnexa, other: normal adnexae, no masses and no tenderness Assessment & Plan Assessment & Plan (1) Well woman exam: Code(s): Z01.419 - Encounter for gynecological examination (general) (routine) without abnormal findings Category: Medical Plan: Cotesting not indicated this year. Mammogram ordered. Counseled the patient about the recommended dietary allowance of 1000 mg of Calcium & 600 IU of vitamin D. The patient was instructed to perform monthly self-breast exams and to schedule an annual exam in a year; All questions answered and the patient verbalized understanding. Instructed the patient to schedule annual exam in a year Orders: Orders MM tomosynthesis screening BI Today Z12.31 - Encounter for screening mammogram for malignant neoplasm of breast Medications: Discontinued phentermine must administer 30 minutes before or 1-2 hours after breakfast Discontinued Reason: Patient no longer taking 37.5 mg PO DAILY 28 days 28 caps 0RF E66.09 - Other obesity due to excess calories, Z68.30 - Body mass index [BMI] 30.0-30.9, adult norethindrone (contraceptive) Discontinued Reason: Patient no longer taking 0.35 mg PO DAILY 84 tabs 0RF Coding Level of Care Code Est Pt Prev Care 40-64y(82860) Diagnoses Well woman exam Z01.419
[2025-03-25 08:24] VITALS: BP 110/70; BMI 31.6
--- OUTSIDE RECORDS SUMMARY | 2025-03-25 09:09 | XMS_ITS | Encounter Summary ---
Author Organization [facility] Address [address] [place] [address] Care Team Providers Care Network Field Engineer Name Role Phone Ramses Ochoa Primary Care Provider [phone] Encounter Details Date Type Department Care Team (Late st Contact Info) Description 02/27/2025 [facility] Interventional Radiology [address] [place] [id number] DarynCloudmark, [facility] Provider [address] [place] [address] [phone] Return to work Social History Tobacco Use Types Packs/Day Years Used Date Smoking Tobacco: Never Smokeless Tobacco: Never Alcohol Use Standard Drinks/Week Comments Yes 2 (1 standard drink = 0.6 oz pur e alcohol) socially Comments No Sex and Gender Information Value Date Recorded Sex Assigned at Female 03/18/2024 2:39 PM EDT Legal Sex Female 3:03 PM EDT Gender Identity Female 08/31/2024 9:44 PM EST Sexual Orientation Straight 08/31/2024 9: 44 PM EST documented as of this encounter Plan of Treatment Upcoming Encounters Date Type Department Care Team (Late st Contact Info) Description 04/29/2025 3:30 PM EDT Office Visit [facility] [address] [place] [address] Elevator Tender: Delfina Roe MD [address] [place] [address] documented as of this encounter Visit Diagnoses Not on filedocumented in this encounter Care Teams Network Field Engineer Relationship Specialty Start Date End Date Ramses Ochoa PA [address] [place] [address] PCP - General 08/15/24 documented as of this encounter
--- OUTSIDE RECORDS SUMMARY | 2025-03-25 09:09 | XMS_ITS | Clinical Summary ---
Author Organization [facility] Address [address] [place] [address] Care Team Providers Care Sales Contracts Analyst Name Role Phone Ramses Ochoa Primary Care Provider [phone] Allergies No known active allergies Medications PATIENT REPORTED OTC MEDICATION daily. [employer]: Vegan Liquid Vitamins takes as directed. Active omeprazole (PriLOSEC) 20 mg capsule Take 1 capsule (20 mg total) by mouth 2 (two) times a day for 7 days. 14 capsule 01/14/2025 Active scopolamine (TRANSDERM-SCOP ) 1 mg over [address] 1 patch on the skin every 3rd day. Apply behind ear. 1 patch 01/14/2025 Active ondansetron (ZOFRAN) 4 mg tablet Take 1 tablet (4 mg total) by mouth every 8 hours as needed for nausea or vomiting. 15 tablet 01/14/2025 Active docusate sodium (COLACE) 100 mg capsule Take 1 capsule (100 mg total) by mouth 3 times a day as needed for constipation. 21 capsule 01/14/2025 Active Encounters Date Type Department Care Team Description 03/24/2025 Telephone [facility] Interventional Radiology [address], [place] [id number] Eleonora Caceres LPN 03/06/2025 Telephone [facility] Interventional Radiology [address], [place] [phone] Michaelle Encinas PA 02/27/2025 myChart Message [facility] Interventional Radiology [address], [place] [phone] Haley, Chandni Provider Return to work 02/18/2025 Telephone [facility] Interventional Radiology [address] [place] [address] Eleonora Caceres LPN 02/12/2025 Telephone [facility] Interventional Radiology [address] [place] [address] Roxi Palacios LPN 02/11/2025 7:29 AM EDT - 02/11/2025 11:59 PM EDT Hospital Encounter [facility] Interventional Radiology [address] [place] [address] Eleonora Radford MD Intramural, submucous, and subserous leiomyoma of uterus Discharge Disposition: Home or Self Care (01) 02/10/2025 Telephone [facility] Interventional Radiology [address] [place] [address] Janna Paige RN from Last 3 Months Family History Medical History Relation Name Comments No Known Problems Brother 1 No Known Problems Brother 2 Hypertension Father Diabetes Maternal Grandfather Hypertension Maternal Grandfather Hypertension Maternal Grandmother Uterine cancer Maternal Grandmother Hypertension Mother Diabetes Other Maternal aunt p rediabetes Hypertension Paternal Grandfather Hypertension Paternal Grandmother Breast cancer Neg Hx Colon cancer Neg Hx Ovarian cancer Neg Hx Relation Name Status Comments Brother 1 Alive Brother 2 Alive Father Maternal Grandfather Maternal Grandmother Mother Other Paternal Grandfather Paternal Grandmother Social History Tobacco Use Types Packs/Day Years Used Date Smoking Tobacco: Never Smokeless Tobacco: Never Tobacco Cessation:Counseling Given: Not Answered Alcohol Use Standard Drinks/Week Comments Yes 2 (1 standard drink = 0.6 oz pur e alcohol) socially Comments No Sex and Gender Information Value Date Recorded Sex Assigned at Female 03/18/2024 2:39 PM EDT Legal Sex Female 3:03 PM EDT Gender Identity Female 08/31/2024 9:44 PM EST Sexual Orientation Straight 08/31/2024 9: 44 PM EST Last Filed Vital Signs Vital Sign Reading Time Taken Comments Blood Pressure 149/95 02/11/2025 2:13 PM EDT Pulse 79 02/11/2025 2:13 PM EDT Temperature 36.7 C (98.1 F) 02/11/2025 8:07 AM EDT Respiratory Rate 16 02/11/2025 12:55 PM EDT Oxygen Saturation 99% 02/11/2025 2:13 PM EDT Inhaled Oxygen Concentration - - Weight 84.8 kg (187 lb) 11/26/2024 9:58 AM EDT Height 165.1 cm (5' 5 ) 11/26/2024 9:58 AM EDT Body Mass Index 31.12 11/26/2024 9:58 AM EDT Plan of Treatment Upcoming Encounters Date Type Department Care Team (Late st Contact Info) Description 04/29/2025 3:30 PM EDT Office Visit [facility] [address] [place] [address] Brick Offbearer: Delfina Roe MD [address] [place] [address] Health Maintenance Due Date Last Done Comments Cervical Cancer Screening 1983 HIV Screening 1983 HPV and Pap Smear 1983 Hepatitis C Screening 1983 Pap Smear 1983 Varicella Vaccines (1 of 2 - 13+ 2-dose series) 1996 Hepatitis B Vaccines (1 of 3 - 19+ 3-dose series) 2002 Mammogram 2023 Alcohol/Substance Use Screening 07/02/2024 Depression Screening and Follow-Up 07/02/2024 Social Drivers of Health Annual Screening 07/02/2024 COVID-19 Vaccine (4 - 2024-2 6 season) 2025 09/11/2021, 11/18/2020, 10/27/2020 Influenza Vaccine (#1) 2025 2, 06/12/2019 Diabetes Screening 02/12/2028 02/11/2025 DTaP,Tdap,and Td Vaccines (2 - Td or Tdap) 11/08/2028 11/08/2018 RSV Vaccine (60+ years old and patients) (1 - 1-dose 75+ series) 2058 Pneumococcal Vaccine: Pediatric (0-5 Years) and At-Risk Patients (6-50 Years) Aged Out No longer eligible based on patient's age to complete this topic Medical Devices Implanted Type Area [employer] Hospitality Manager Device Identifier Shelf Expiration Date Model / Serial / Lot Microsphere Embolization Prefilled Syringe Red 500um-700um 20ml Embosphere - [id number] Implanted:Qty: 5 on 02/11/2025 at [facility] 09/13/2027 [id number] / / [id number] Microsphere Embolization Prefilled Syringe Green 700um-900um 20ml Embosphere - [id number] Implanted:Qty: 2 on 02/11/2025 at [facility] 08/19/2027 [id number] / / [id number] Procedures * Due to [place] [employer] law, this organization might not be sharing negative HIV tests. Procedure Name Priority Date/Time Associated Diagnosis Comments IR EMBOLIZATION UTERINE FIBROID Routine 02/11/2025 11:44 AM EDT Intramural, submucous, and subserous leiomyoma of uterus POCT HCG, URINE STAT 02/11/2025 8:09 AM EDT CBC STAT 02/11/2025 7:27 AM EDT Intramural, submucous, and subserous leiomyoma of uterus BASIC METABOLIC PANEL STAT 02/11/2025 7:27 AM EDT Intramural, submucous, and subserous leiomyoma of uterus PROTIME-INR STAT 02/11/2025 7:27 AM EDT Intramural, submucous, and subserous leiomyoma of uterus from Last 3 Months Results * Due to [place] [employer] law, this organization might not be sharing negative HIV tests. * IR Embolization Uterine Fibroid (02/11/2025 11:44 AM EDT) Anatomical Region Laterality Modality Body, Uterus and fallopian tubes X-Ray Angiography 02/11/2025 12:1 0 PM EDT Impressions 02/11/2025 3:02 PM EDT Uterine angiography demonstrates hypervascular uterus with two large fibroids. Bilateral uterine artery embolization was performed. Plan: Patient prescribed oral analgesics and anti-emetics and will be discharged home. Follow-up in IR clinic in 3 months after follow-up MRI pelvis with and without contrast is performed. PROCEDURE SUMMARY: - Arterial access with ultrasound guidance - Aortography: Not performed - Left internal iliac arteriography - Left uterine arteriography, embolization, and post-embolization arteriography - Right internal iliac arteriography - Right uterine arteriography, embolization, and post-embolization arteriography - Additional procedures: None PROCEDURE DETAILS: Pre-procedure Consent: Informed consent for the procedure including risks, benefits and alternatives was obtained and time-out was performed prior to the procedure. Preparation: The site was prepared and draped using maximal sterile barrier technique including cutaneous antisepsis. Anesthesia/sedation Level of anesthesia/sedation: Moderate sedation (conscious sedation) Anesthesia/sedation administered by: Radiology nursing staff or independent trained observer under attending supervision with continuous monitoring of the patient's level of consciousness and physiologic status Total intra-service sedation time (minutes): 159 Additional anesthesia: Superior hypogastric nerve block Additional anesthesia administered by: Not applicable Access Local anesthesia was administered. The vessel was sonographically evaluated and judged to be patent. Real time ultrasound was used to visualize needle entry into the vessel and a permanent image was stored. A 5 Fr` sheath was placed. Laterality: Left Vessel accessed: Radial artery Access technique: Micropuncture set with 21 gauge needle Access cocktail: Radial access cocktail consisting of 2.5 mg verapamil, 200 mcg nitroglycerin, and 3000 units of heparin, homogenized with patient's blood in a 20 mL syringe, was administered slowly via the access sheath. Aortography Vessel catheterized: Not performed Indication for aortography (MIPS): Not applicable Findings: Not applicable Selective angiography The pelvic and uterine arteries were catheterized using 5 Fr MG1 Glidecath XP, 2.8 Fr Progreat microcatheter, and Fathom 0.016 inch microwire. Indication for angiography: Diagnostic angiography - There was no prior catheter-based angiographic study available and a full diagnostic study was performed. The decision to intervene was based on the diagnostic study. Variant anatomy: None Vessel catheterized: Left internal iliac artery Findings: Conventional anatomy. Vessel catheterized: Left uterine artery Findings: Blood supply to uterine fibroids. No cervicovaginal branches are seen. Vessel catheterized: Right internal iliac artery Findings: Conventional anatomy. Vessel catheterized: Right uterine artery Findings: Blood supply to uterine fibroids. No cervicovaginal branches are seen. Vessel catheterized: None Findings: Not applicable Angiography of ovarian arteries performed (MIPS): No Embolization Primary particle embolic: Embospheres Primary particle embolic size (micron): 500-700 Secondary particle embolic: Embospheres Secondary particle embolic size (micron): 700-900 Catheter position for embolization: Left uterine artery - Vials of primary particle embolic administered: 3 - Vials of secondary particle embolic administered: 2 - Additional embolic(s) administered: None - Angiographic endpoint (MIPS): Near-stasis (not static, but contrast visible for at least 5 heartbeats) Catheter position for embolization: Right uterine artery - Vials of primary particle embolic administered: 2 - Vials of secondary particle embolic administered: 0 - Additional embolic(s) administered: None - Angiographic endpoint (MIPS): Near-stasis (not static, but contrast visible for at least 5 heartbeats) Completion angiography Vessel catheterized: Bilateral uterine arteries Findings: Near-stasis with no flow to the uterine fibroids. Closure Access site angiography performed: No Findings: None. Arterial closure technique: Radial compression device Hemostasis achieved from closure technique: Yes Duration of manual compression (minutes): Not applicable Contrast Contrast agent: Omnipaque 300 Contrast volume (mL): 180 Radiation Dose Fluoroscopy time (minutes): 37.3 Reference air kerma (mGy): 3669.97 Kerma area product (Gy-cm2): 571 Additional Details Additional description of procedure: None Registry event: V/3/g Device used: None Equipment details: The volume of particle embolic in each vial was 2 mL. Unique Device Identifiers: Not available Specimens removed: None Estimated blood loss (mL): Less than 10 Standardized report: _[email or web address]_v3.1 Attestation Signer name: Francisco Lubin I attest that I was present for the entire procedure. I reviewed the stored images and agree with the report as written. I, Francisco Lubin, have reviewed the examination and concur with the findings as reported or so edited. Trainee: Az Rouse If this radiology report contains a blank impression section, it is an incomplete radiology report. Please contact the interpreting radiologist or applicable radiology division as soon as possible to obtain the completed interpretation. Workstation ID: [id number] Narrative 02/11/2025 3:02 PM EDT PROCEDURE: Uterine artery embolization Procedural Personnel Attending physician(s): Francisco Lubin Fellow physician(s): None Resident physician(s): Az Rouse Advanced practice provider(s): None Procedure Date (): 02/11/2025 Pre-procedure diagnosis (MIPS): Symptomatic uterine fibroids Post-procedure diagnosis: Same Indication: Pelvic pain or pressure symptoms Additional clinical history: None Complications: No immediate complications. Resulting Agency Comment [id number] Procedure Note Francisco Lubin MD - 02/11/2025 PROCEDURE: Uterine artery embolization Procedural Personnel Attending physician(s): Francisco Lubin Fellow physician(s): None Resident physician(s): Az Rouse Advanced practice provider(s): None Procedure Date (): 02/11/2025 Pre-procedure diagnosis (MIPS): Symptomatic uterine fibroids Post-procedure diagnosis: Same Indication: Pelvic pain or pressure symptoms Additional clinical history: None Complications: No immediate complications. IMPRESSION: Uterine angiography demonstrates hypervascular uterus with two largefibroids. Bilateral uterine artery embolization was performed. Plan: Patient prescribed oral analgesics and anti-emetics and will be dischargedhome. Follow-up in IR clinic in 3 months after follow-up MRI pelvis with andwithout contrast is performed. PROCEDURE SUMMARY: - Arterial access with ultrasound guidance - Aortography: Not performed - Left internal iliac arteriography - Left uterine arteriography, embolization, and post-embolizationarteriography - Right internal iliac arteriography - Right uterine arteriography, embolization, and post-embolizationarteriography - Additional procedures: None PROCEDURE DETAILS: Pre-procedure Consent: Informed consent for the procedure including risks, benefits andalternatives was obtained and time-out was performed prior to theprocedure. Preparation: The site was prepared and draped using maximal sterilebarrier technique including cutaneous antisepsis. Anesthesia/sedation Level of anesthesia/sedation: Moderate sedation (conscious sedation) Anesthesia/sedation administered by: Radiology nursing staff orindependent trained observer under attending supervision with continuousmonitoring of the patient's level of consciousness and physiologicstatus Total intra-service sedation time (minutes): 159 Additional anesthesia: Superior hypogastric nerve block Additional anesthesia administered by: Not applicable Access Local anesthesia was administered. The vessel was sonographicallyevaluated and judged to be patent. Real time ultrasound was used tovisualize needle entry into the vessel and a permanent image was stored. A5 Fr` sheath was placed. Laterality: Left Vessel accessed: Radial artery Access technique: Micropuncture set with 21 gauge needle Access cocktail: Radial access cocktail consisting of 2.5 mg verapamil,200 mcg nitroglycerin, and 3000 units of heparin, homogenized withpatient's blood in a 20 mL syringe, was administered slowly via the accesssheath. Aortography Vessel catheterized: Not performed Indication for aortography (MIPS): Not applicable Findings: Not applicable Selective angiography The pelvic and uterine arteries were catheterized using 5 Fr MG1 GlidecathXP, 2.8 Fr Progreat microcatheter, and Fathom 0.016 inch microwire. Indication for angiography: Diagnostic angiography - There was no priorcatheter- based angiographic study available and a full diagnostic studywas performed. The decision to intervene was based on the diagnosticstudy. Variant anatomy: None Vessel catheterized: Left internal iliac artery Findings: Conventional anatomy. Vessel catheterized: Left uterine artery Findings: Blood supply to uterine fibroids. No cervicovaginal branches areseen. Vessel catheterized: Right internal iliac artery Findings: Conventional anatomy. Vessel catheterized: Right uterine artery Findings: Blood supply to uterine fibroids. No cervicovaginal branches areseen. Vessel catheterized: None Findings: Not applicable Angiography of ovarian arteries performed (MIPS): No Embolization Primary particle embolic: Embospheres Primary particle embolic size (micron): 500-700 Secondary particle embolic: Embospheres Secondary particle embolic size (micron): 700-900 Catheter position for embolization: Left uterine artery - Vials of primary particle embolic administered: 3 - Vials of secondary particle embolic administered: 2 - Additional embolic(s) administered: None - Angiographic endpoint (MIPS): Near-stasis (not static, but contrastvisible for at least 5 heartbeats) Catheter position for embolization: Right uterine artery - Vials of primary particle embolic administered: 2 - Vials of secondary particle embolic administered: 0 - Additional embolic(s) administered: None - Angiographic endpoint (MIPS): Near-stasis (not static, but contrastvisible for at least 5 heartbeats) Completion angiography Vessel catheterized: Bilateral uterine arteries Findings: Near-stasis with no flow to the uterine fibroids. Closure Access site angiography performed: No Findings: None. Arterial closure technique: Radial compression device Hemostasis achieved from closure technique: Yes Duration of manual compression (minutes): Not applicable Contrast Contrast agent: Omnipaque 300 Contrast volume (mL): 180 Radiation Dose Fluoroscopy time (minutes): 37.3 Reference air kerma (mGy): 3669.97 Kerma area product (Gy-cm2): 571 Additional Details Additional description of procedure: None Registry event: V/3/g Device used: None Equipment details: The volume of particle embolic in each vial was 2 mL. Unique Device Identifiers: Not available Specimens removed: None Estimated blood loss (mL): Less than 10 Standardized report: _Adriana_v3.1 Attestation Signer name: Francisco Lubin I attest that I was present for the entire procedure. I reviewed thestored images and agree with the report as written. I, Francisco Lubin, have reviewed the examination and concur with the findingsas reported or so edited. Trainee: Az Rouse If this radiology report contains a blank impression section, it is anincomplete radiology report. Please contact the interpreting radiologistor applicable radiology division as soon as possible to obtain thecompleted interpretation. Workstation ID: [id number] us Eleonora Radford MD IMG IR PROCEDURES Final Resu lt * POCT HCG, Urine, non-interfaced (02/11/2025 8:09 AM EDT) Control band present? Yes Background Clear? Yes Preg Test, Ur Negative Negative Urine 02/11/2025 8:09 AM EDT Michaelle HU POINT OF CARE TEST ORDERABLES Final Result * Protime-INR (02/11/2025 7:27 AM EDT) PT 10.8 9.6 - 12.4 Seconds 02/11/2025 8:13 AM EDT [facility] INR 1.0 0.9 - 1.1 02/11/2025 8:13 AM EDT [facility] Comment:The optimal therapeu tic INR range for patients treated with Vitamin K antagonists (VKAS, e.g., Warfarin) is 2.0 to 3.5. Discuss the desired range with your doctor/care team. Blood Structure of peripheral vein / Unknown Venipuncture / Unknown 02/11/2025 7:27 AM EDT 02/11/2025 7:41 AM EDT us Michaelle HU LAB BLOOD ORDERABLES Final Re sult [facility] [address] [place] [address], * CBC (02/11/2025 7:27 AM EDT) WBC 7.4 3.8 - 10.8 10*3/uL 02/11/2025 8:05 AM EDT [facility] RBC 5.03 3.80 - 5.10 10*6/uL 02/11/2025 8:05 AM EDT [facility] Hemoglobin 13.7 11.7 - 15.5 g/dL 02/11/2025 8:05 AM EDT [facility] Hematocrit 41.3 35.0 - 45.0 % 02/11/2025 8:05 AM EDT [facility] MCV 82.1 80.0 - 100.0 fL 02/11/2025 8:05 AM EDT [facility] MCH 27.2 27.0 - 33.0 pg 02/11/2025 8:05 AM EDT [facility] MCHC 33.2 32.0 - 36.0 g/dL 02/11/2025 8:05 AM EDT [facility] RDW 14.1 11.0 - 15.0 % 02/11/2025 8:05 AM EDT [facility] Platelets 272 140 - 400 10*3/uL 02/11/2025 8:05 AM EDT [facility] MPV 11.4 7.5 - 12.5 fL 02/11/2025 8:05 AM EDT [facility] Blood Structure of peripheral vein / Unknown Venipuncture / Unknown 02/11/2025 7:27 AM EDT 02/11/2025 7:41 AM EDT us Michaelle HU LAB BLOOD ORDERABLES Final Re sult [facility] [address] [place] [address], * (ABNORMAL) Basic Metabolic Panel (02/11/2025 7:27 AM EDT) NA 139 135 - 145 mmol/L 02/11/2025 8:10 AM EDT [facility] K 3.7 3.5 - 5.3 mmol/L 02/11/2025 8:10 AM EDT [facility] Cl 106 98 - 107 mmol/L 02/11/2025 8:10 AM EDT [facility] CO2 23 22 - 32 mmol/L 02/11/2025 8:10 AM EDT [facility] BUN 16 7 - 23 mg/dL 02/11/2025 8:10 AM EDT [facility] Creatinine 0.81 0.50 - 1.20 mg/dL 02/11/2025 8:10 AM EDT [facility] Glucose 100(H) 65 - 99 mg/dL 02/11/2025 8:10 AM EDT [facility] Calcium 8.3(L) 8.6 - 10.5 mg/dL 02/11/2025 8:10 AM EDT [facility] Anion Gap 10 5 - 15 02/11/2025 8:10 AM EDT [facility] eGFR >90 >=60 mL/min/1. 73m2 02/11/2025 8:10 AM EDT [facility] Comment:The estimated glomer ular filtration rate (eGFR) is calculated using a new formula developed by the NKF-ASN task force to eliminate race-based correction factors. The new formula uses serum/plasma creatinine, age, and gender to determine eGFR. A value below 60mls/min might indicate kidney disease and will be flagged. For additional information, see Castelan et al, Am J Kidney Dis. 2021;79(2):268- 288, A Unifying Approach for GFR estimation: Recommendations of the NKF-ASN Task Force on Reassessing the Inclusion of Race in Diagnosing Kidney Disease . Blood Structure of peripheral vein / Unknown Venipuncture / Unknown 02/11/2025 7:27 AM EDT 02/11/2025 7:41 AM EDT us Michaelle HU LAB BLOOD ORDERABLES Final Re sult [facility] [address] [place] [address], from Last 3 Months Insurance [facility] Care Teams Sales Contracts Analyst Relationship Specialty Start Date End Date Ramses Ochoa PA [address] [place] [id number] PCP - General 08/15/24
--- OUTSIDE RECORDS SUMMARY | 2025-03-25 09:09 | XMS_ITS | Encounter Summary ---
Author Organization [facility] Address [address] [place] [address] Care Team Providers Care Patient Access Manager Name Role Phone Ramses Ochoa Primary Care Provider Encounter Details Date Type Department Care Team (Latest Contact Info) Description 12/02/2024 [employer] [facility] Interventional Radiology [address] [place] [address] [employer], [facility] Provider [address] [place] [address] [phone] Uterine artery Embolization Social History Tobacco Use Types Packs/Day Years [...] Description 04/29/2025 3:30 PM EDT Office Visit [facility] [address] [place] [address] Justice: Delfina Roe MD [address] [place] [address] documented as of this encounter Visit Diagnoses Not on filedocumented in this encounter Care Teams Patient Access Manager Relationship Specialty Start Date End Date Ramses Ochoa PA [address] [place] [id number] PCP - General 08/15/24 documented as of this encounter
--- OUTSIDE RECORDS SUMMARY | 2025-03-25 09:09 | XMS_ITS | Encounter Summary ---
Author Organization [employer] Address [address] [place] [address] 7 [place] [address] Care Team Providers Care Evaluator Name Role Phone Micaela Bangura MD Primary Care Pro vider Reason for Visit * Reason Onset Date Comments New Patient Appt 11/22/2022 Encounter Details Date Type Department Care Team (Late st Contact Info) Description 11/22/2022 Telephone [facility] MEDICINE [address] [place], [place] [phone] Micaela Bangura MD [address] [place], [place] [phone] New Patient Appt Social History Tobacco Use Types Packs/Day Years Used Date Smoking Tobacco: Never Assessed Comments Unknown Sex and Gender Information Value Date Recorded Sex Assigned at Female 05/01/2022 10:36 AM EDT Legal Sex Female 10:36 AM EDT Gender Identity Female 05/01/2022 10:36 AM EDT Sexual Orientation Straight 05/01/2022 10 :36 AM EDT documented as of this encounter Miscellaneous Notes * Telephone Encounter - Ghanshyam Heredia - 11/22/2022 10:07 AM EDT JESSE Lennon called pt to offer CLINICAL STAFF EDUCATOR appt. Pt demographics and insurance information were verified.Pt reports no medical conditions. Pt currently Takes Control. Pt given CLINICAL STAFF EDUCATOR appt with on 01/08/[address] Castro @ 1:45 pm. Pt will be sent appt reminder card and medical release form and agrees to complete and to return to medical records prior to CLINICAL STAFF EDUCATOR appt. documented in this encounter Plan of Treatment Not on file documented as of this encounter Visit Diagnoses Not on filedocumented in this encounter Care Teams Evaluator Relationship Specialty Start Date End Date Micaela Bangura MD [address] [place] [address] PCP - General Internal Medicine 11/22/22 11/29/22 documented as of this encounter
--- OUTSIDE RECORDS SUMMARY | 2025-03-25 09:09 | XMS_ITS | Clinical Summary ---
Author Organization [employer] Address [address] [facility] 7t [place] [address] Care Team Providers Care Facilities Technician Name Role Phone Unavailable Primary Care Provider Unavailabl e Immunizations Immunization Administration Dates Next Due Influenza Injectable Quadriv alant Preservative Free IIV4 MDCK 06/12/2019 Influenza injectable quadrivalent preservative f ree 05/22/2022 MMR 12/09/2018,11/08/2018 Tdap 11/08/2018 Social History Tobacco Use Types Packs/Day Years Used Date Smoking Tobacco: Never Assessed Comments Unknown Sex and Gender Information Value Date Recorded Sex Assigned at Female 05/01/2022 10:36 AM EDT Legal Sex Female 10:36 AM EDT Gender Identity Female 05/01/2022 10:36 AM EDT Sexual Orientation Straight 05/01/2022 10 :36 AM EDT Plan of Treatment Health Maintenance Due Date Last Done Comments Depression Screening 1983 HIV Screening 1983 SDOH Screening 1983 Disability Screening 1983 Alcohol/Substance Use Screening 1995 Tobacco Screening 1995 Family Planning (PISQ) 1998 HPV Vaccines (1 - 3-dose series) 1998 Hepatitis C Screening 2001 Hepatitis B Vaccines (1 of 3 - 19+ 3-dose series) 2002 Pap Smear 2004 Cervical Cancer Screening 2013 HPV/Cotest 2013 Mammogram 2023 COVID-19 Vaccine (4 - 2024-2 6 season) 2025 09/11/2021, 11/18/2020, 10/27/2020 Influenza Vaccine (#1) 2025 , 06/12/2019 DTaP/Tdap/Td Vaccines (2 - T d or Tdap) 11/08/2028 11/08/2018 Zoster Vaccines (1 of 2) 2033 RSV Patients and Patients Aged 60 years or older (1 - 1-dose 75+ series) 2058 HIB Vaccines Aged Out No longer eligi ble based on patient's age to complete this topic Hepatitis A Vaccines Aged Out No long er eligible based on patient's age to complete this topic IPV Vaccines Aged Out No longer eligi ble based on patient's age to complete this topic Meningococcal B Vaccine Aged Out No l onger eligible based on patient's age to complete this topic Meningococcal Vaccine Aged Out No madeleine henrik eligible based on patient's age to complete this topic Pneumococcal Vaccine: Pediatrics (0 to 5 Years) and At-Risk Patients (6 to 49) Years Aged Out No longer eligible b ased on patient's age to complete this topic RSV under 20 months Aged Out No longe r eligible based on patient's age to complete this topic Rotavirus Vaccines Aged Out No longer eligible based on patient's age to complete this topic Insurance [facility] HSN FULL
--- OUTSIDE RECORDS SUMMARY | 2025-03-25 09:09 | XMS_ITS | Encounter Summary ---
Author Organization [facility] Address [address] [place] [address] Care Team Providers Care Oil And Gas Field Technician Name Role Phone Ramses Ochoa Primary Care Provider [phone] Encounter Details Date Type Department Care Team ([facility] st Contact Info) Description 03/24/2025 Telephone [facility] Interventional Radiology [address] [place] [address] Eleonora Caceres LPN Social History Tobacco Use Types Packs/Day Years [...] PM EST documented as of this encounter Miscellaneous Notes * Telephone Encounter - Eleonora Caceres LPN - 03/24/2025 9:23 AM EDT Outgoing call to patient. 6-week post UFE follow-up phone call completed. Patient states feeling great overall. Reports there has been an improvement since procedure no cramps, no pain . Tells me her period improved/not has heavy as before but lasted longer about 7-8 days with spotting. Denies any fever, chills, abdominal pain. Pt c/o mild intermittent whitish foul smelling vaginally dischargethat started about 1 week post-procedure comes and goes . She has an appointment with her OBGYN tomorrow. Aware of plan for follow up imaging in 3-6 months as determined per MD and fuse maker will reach out. Encouraged her to call if any questions or concerns arise. In-basket msg sent to ANABELLE w/update. documented in this encounter Plan of Treatment Upcoming Encounters Date Type Department Care Team (Late st Contact Info) Description 04/29/2025 3:30 PM EDT Office Visit [facility] [address] Winery Cellar Hand: Delfina Roe MD [address] [place] [address] documented as of this encounter Visit Diagnoses Not on filedocumented in this encounter Care Teams Oil And Gas Field Technician Relationship Specialty Start Date End Date Ramses Ochoa PA [address] [place] [address] PCP - General 08/15/24 documented as of this encounter
--- OUTSIDE RECORDS SUMMARY | 2025-03-25 09:10 | XMS_ITS | Encounter Summary ---
Author Organization [facility] Address [address] [place] [address] Care Team Providers Care Government Affairs Researcher Name Role Phone Ramses Ochoa Primary Care Provider [phone] Encounter Details Date Type Department Care Team (Late st Contact Info) Description 11/21/2024 [place] [facility] Interventional Radiology [address] [place] [address] [facility] Provider [facility] [place], [place] [phone] Insurance auth Social History Tobacco Use Types Packs/Day Years [...] Description 04/29/2025 3:30 PM EDT Office Visit [facility] [address] [place] [address] Top Edge Beveler: Delfina Roe MD [address] [place] [address] documented as of this encounter Visit Diagnoses Not on filedocumented in this encounter Care Teams Government Affairs Researcher Relationship Specialty Start Date End Date Ramses Ochoa PA [address] [place] [address] PCP - General 08/15/24 documented as of this encounter
== END 2025-03-25 08:44 | disposition home or self-care (01) ==
LOC: HO.HWS 08:22
PROVIDERS: PCP Physician Assistant; Visit Provider Obstetrics & Gynecology
DX: Z01.419 Encounter for gynecological examination (general) (routine) without abnormal findings (principal)
CPT/HCPCS: 99396; 99459

== ENCOUNTER 2025-03-25 08:22 | Outpatient (REF) | payer OTHER, SELFPAY ==
[2025-03-25 16:48] LABS: Bacterial Vaginosis PCR POSITIVE (Negative); Candida Group PCR NOT DETECTED (Not Detect); Candida glab krusei PCR NOT DETECTED (Not Detect); Trichomonas vaginalis PCR NOT DETECTED (Not Detect)
[2025-03-25 16:54] LABS: CT PCR NOT DETECTED (Not Detect.); NG PCR NOT DETECTED (Not Detect.)
== END 2025-03-25 08:23 | disposition home or self-care (01) ==
LOC: HO.LNP 08:22
PROVIDERS: PCP Physician Assistant; Visit Provider Obstetrics & Gynecology
DX: Z01.419 Encounter for gynecological examination (general) (routine) without abnormal findings (principal); Z20.2 Contact with and (suspected) exposure to infections with a predominantly sexual mode of transmission
CPT/HCPCS: 81515; 87491; 87591; 99396

== ENCOUNTER 2025-03-27 09:39 | Outpatient (REF) | payer OTHER, SELFPAY ==
--- OUTSIDE RECORDS SUMMARY | 2025-03-27 10:41 | XMS_ITS | Clinical Summary ---
Author Organization [employer] Address [address] [facility] 7t [place] [address] Care Team Providers Care Safety Security Officer Name Role Phone Unavailable Primary Care Provider [...] patient's age to complete this topic Insurance [facility] HSN FULL
--- OUTSIDE RECORDS SUMMARY | 2025-03-27 10:41 | XMS_ITS | Encounter Summary ---
Author Organization [facility] Address [address] [place] [address] Care Team Providers Care Laborer Operator Name Role Phone Ramses Ochoa Primary Care Provider [phone] Encounter Details Date Type Department Care Team ([facility] st Contact Info) Description 03/24/[address] [facility] Interventional Radiology [address] [place] [address] Eleonora Caceres LPN Social History Tobacco Use [...] 3-6 months as determined per MD and career services assistant will reach out. Encouraged her to call if any questions or concerns arise. In-basket msg sent to ANABELLE w/update. documented in this encounter Plan of Treatment Upcoming Encounters Date Type Department Care Team (Late st Contact Info) Description 04/29/2025 3:30 PM EDT Office Visit [facility] [address] Repairer Handtools: Delfina Roe MD [address] [place] [address] documented as of this encounter Visit Diagnoses Not on filedocumented in this encounter Care Teams Laborer Operator Relationship Specialty Start Date End Date Ramses Ochoa PA [address] [place] [address] PCP - General 08/15/24 documented as of this encounter
--- OUTSIDE RECORDS SUMMARY | 2025-03-27 10:41 | XMS_ITS | Clinical Summary ---
Author Organization [facility] Address [address] [place] [address] Care Team Providers Care Tree Feller Name Role Phone Ramses Ochoa Primary Care Provider [phone] Allergies No known active allergies Medications PATIENT [...] Type Department Care Team Description 03/24/2025 Telephone [facility] Interventional Radiology [address] [place], [place] [phone] Eleonora Caceres LPN 03/06/2025 Telephone [facility] Interventional Radiology [address] [place], [place] [phone] Michaelle Encinas PA 02/27/2025 myChart Message [facility] Interventional Radiology [address] [place], [place] [phone] Haley, Chandni Provider Return to work 02/18/2025 Telephone [facility] Interventional Radiology [address] [place] [address] Eleonora Caceres LPN 02/12/2025 Telephone [facility] Interventional Radiology [address] [place] [address] Roxi Palacios LPN 02/11/2025 7:29 AM EDT - 02/11/2025 11:59 PM EDT Hospital Encounter [facility] Interventional Radiology [address] [place] [address] Eleonora Radford MD Intramural, submucous, and subserous leiomyoma of uterus Discharge Disposition: Home or Self Care (01) 02/10/2025 Telephone [facility] Interventional Radiology [address] [place] [address] Janna Paige RN from Last 3 Months [...] Description 04/29/2025 3:30 PM EDT Office Visit [facility] Women's [facility] [address] [place] [address] Foot Piece Assembler: Delfina Roe MD [address] [place] [address] Health Maintenance Due Date Last [...] this topic Medical Devices Implanted Type Area Finishing Supervisor Plastic Sheets Device Identifier Shelf Expiration Date Model / Serial / Lot Microsphere Embolization Prefilled Syringe Red 500um-700um 20ml Embosphere - [id number] Implanted:Qty: 5 on 02/11/2025 at [facility] 09/13/2027 [id number] / / [id number] Microsphere Embolization Prefilled Syringe Green 700um-900um 20ml Embosphere - [id number] Implanted:Qty: 2 on 02/11/2025 at [facility] 08/19/2027 [id number] / / [id number] Procedures * Due to [place] CreationFlow law, this organization might not be sharing [...] Last 3 Months Results * Due to [place] Creation[employer] law, this organization might not be sharing [...] to obtain the completed interpretation. Workstation ID: [id number] Narrative 02/11/2025 3:02 PM EDT PROCEDURE: Uterine artery embolization Procedural Personnel Attending physician(s): Francisco Lubin Fellow physician(s): None Resident physician(s): Az Rouse Advanced practice provider(s): None Procedure Date (): 02/11/2025 Pre-procedure diagnosis (MIPS): Symptomatic uterine fibroids Post-procedure diagnosis: Same Indication: Pelvic pain or pressure symptoms Additional clinical history: None Complications: No immediate complications. Resulting Agency Comment [id number] Procedure Note Francisco Lubin MD - 02/11/2025 [...] loss (mL): Less than 10 Standardized report: _Adrinaa_v3.1 Attestation Signer name: Francisco Lubin I attest [...] possible to obtain thecompleted interpretation. Workstation ID: [id number] us Eleonora Radford MD IMG IR PROCEDURES Final Resu lt * POCT HCG, Urine, non-interfaced (02/11/2025 8:09 AM EDT) Control band present? Yes Background Clear? Yes Preg Test, Ur Negative Negative Urine 02/11/2025 8:09 AM EDT Michaelle HU POINT OF CARE TEST ORDERABLES Final Result * Protime-INR (02/11/2025 7:27 AM EDT) PT 10.8 9.6 - 12.4 Seconds 02/11/2025 8:13 AM EDT [facility] INR 1.0 0.9 - 1.1 02/11/2025 8:13 AM EDT [facility] Comment:The optimal therapeu tic INR range for patients treated with Vitamin K antagonists (VKAS, e.g., Warfarin) is 2.0 to 3.5. Discuss the desired range with your doctor/care team. Blood Structure of peripheral vein / Unknown Venipuncture / Unknown 02/11/2025 7:27 AM EDT 02/11/2025 7:41 AM EDT us Michaelle HU LAB BLOOD ORDERABLES Final Re sult [facility] [address] [place] [address], * CBC (02/11/2025 7:27 AM EDT) WBC 7.4 3.8 - 10.8 10*3/uL 02/11/2025 8:05 AM EDT [facility] RBC 5.03 3.80 - 5.10 10*6/uL 02/11/2025 8:05 AM EDT [facility] Hemoglobin 13.7 11.7 - 15.5 g/dL 02/11/2025 8:05 AM EDT [facility] Hematocrit 41.3 35.0 - 45.0 % 02/11/2025 8:05 AM EDT [facility] MCV 82.1 80.0 - 100.0 fL 02/11/2025 8:05 AM EDT [facility] MCH 27.2 27.0 - 33.0 pg 02/11/2025 8:05 AM EDT [facility] MCHC 33.2 32.0 - 36.0 g/dL 02/11/2025 8:05 AM EDT [facility] RDW 14.1 11.0 - 15.0 % 02/11/2025 8:05 AM EDT [facility] Platelets 272 140 - 400 10*3/uL 02/11/2025 8:05 AM EDT [facility] MPV 11.4 7.5 - 12.5 fL 02/11/2025 8:05 AM EDT [facility] Blood Structure of peripheral vein / Unknown Venipuncture / Unknown 02/11/2025 7:27 AM EDT 02/11/2025 7:41 AM EDT us Michaelle HU LAB BLOOD ORDERABLES Final Re sult [facility] [address] [place] [address], * (ABNORMAL) Basic Metabolic Panel (02/11/2025 7:27 AM EDT) NA 139 135 - 145 mmol/L 02/11/2025 8:10 AM EDT [facility] K 3.7 3.5 - 5.3 mmol/L 02/11/2025 8:10 AM EDT [facility] Cl 106 98 - 107 mmol/L 02/11/2025 8:10 AM EDT [facility] CO2 23 22 - 32 mmol/L 02/11/2025 8:10 AM EDT [facility] BUN 16 7 - 23 mg/dL 02/11/2025 8:10 AM EDT [facility] Creatinine 0.81 0.50 - 1.20 mg/dL 02/11/2025 8:10 AM EDT [facility] Glucose 100(H) 65 - 99 mg/dL 02/11/2025 8:10 AM EDT [facility] Calcium 8.3(L) 8.6 - 10.5 mg/dL 02/11/2025 8:10 AM EDT [facility] Anion Gap 10 5 - 15 02/11/2025 8:10 AM EDT [facility] eGFR >90 >=60 mL/min/1. 73m2 02/11/2025 8:10 AM EDT [facility] Comment:The estimated glomer [...] HU LAB BLOOD ORDERABLES Final Re sult [facility] [address] [place] [address], from Last 3 Months Insurance [facility] Care Teams Tree Feller Relationship Specialty Start Date End Date Ramses Ochoa PA [address] [place] [address] PCP - General 08/15/24
--- OUTSIDE RECORDS SUMMARY | 2025-03-27 10:41 | XMS_ITS | Encounter Summary ---
Author Organization [facility] Address [address] [place] [address] Care Team Providers Care High School Science Tutor Name Role Phone Ramses Ochoa Primary Care Provider [phone] Encounter Details Date Type Department Care Team (Late st Contact Info) Description 02/27/2025 [facility] Interventional Radiology [address] [place] [address] D[employer]hes [employer], [facility] Provider [address] [place] [address] [phone] Return to work Social History Tobacco Use [...] Description 04/29/2025 3:30 PM EDT Office Visit [facility] Women[facility] Care [address] [place] [address] City Planner: Delfina Roe MD [address] [place] [address] documented as of this encounter Visit Diagnoses Not on filedocumented in this encounter Care Teams High School Science Tutor Relationship Specialty Start Date End Date Ramses Ochoa PA [address] [place] [address] PCP - General 08/15/24 documented as of this encounter
--- OUTSIDE RECORDS SUMMARY | 2025-03-27 10:42 | XMS_ITS | Encounter Summary ---
Author Organization [facility] Address [address] [place] [address] Care Team Providers Care Templer Head Name Role Phone Ramses Ochoa Primary Care Provider [phone] Encounter Details Date Type Department Care Team (Latest Contact Info) Description 12/02/2024 [facility] Interventional Radiology [address] [place] [address] DarynSafe Shipping Inspectors, [facility] Provider [address] [place] [phone] Uterine artery Embolization Social History Tobacco Use [...] Description 04/29/2025 3:30 PM EDT Office Visit [facility] [address] [place] [address] Predatory Animal Trapper: Delfina Roe MD [address] [place] [address] documented as of this encounter Visit Diagnoses Not on filedocumented in this encounter Care Teams Templer Head Relationship Specialty Start Date End Date Ramses Ochoa PA [address] [place] [address] PCP - General 08/15/24 documented as of this encounter
--- OUTSIDE RECORDS SUMMARY | 2025-03-27 10:42 | XMS_ITS | Encounter Summary ---
Author Organization [facility] Address [address] [place] [address] Care Team Providers Care Channel Rebuilder Name Role Phone Ramses Ochoa Primary Care Provider [phone] Encounter Details Date Type Department Care Team (Late st Contact Info) Description 11/21/2024 [place] [facility] Interventional Radiology [address] [place] [address] DarynRadisphere Radiology, [facility] Provider [facility] [place], [place] [phone] Insurance auth Social History Tobacco Use Types [...] Description 04/29/2025 3:30 PM EDT Office Visit [facility] [address] [place] [address] Chemical Engineering Intern: Delfina Roe MD [address] [place] [phone] documented as of this encounter Visit Diagnoses Not on filedocumented in this encounter Care Teams Channel Rebuilder Relationship Specialty Start Date End Date Ramses Ochoa PA [address] [place] [place] [address] PCP - General 08/15/24 documented as of this encounter
--- OUTSIDE RECORDS SUMMARY | 2025-03-27 10:42 | XMS_ITS | Encounter Summary ---
Author Organization [employer] Address [address] [place] [address] 7 [place] [address] Care Team Providers Care Calculator Operator Name Role Phone Micaela Bangura MD Primary Care Pro vider Reason for Visit * Reason Onset Date Comments New Patient Appt 11/22/2022 Encounter Details Date Type Department Care Team (Late st Contact Info) Description 11/22/2022 Telephone [facility] MEDICINE [address] [place], [place] [phone] Micaela Bangura MD [address] [place], [place] [phone] New Patient Appt Social History Tobacco Use [...] EDT JESSE Lennon called pt to offer SOCIAL AND POLITICAL STUDIES PROFESSOR appt. Pt demographics and insurance information were verified.Pt reports no medical conditions. Pt currently Takes Control. Pt given SOCIAL AND POLITICAL STUDIES PROFESSOR appt with on 01/08/[address] Castro @ 1:45 pm. Pt will be sent appt reminder card and medical release form and agrees to complete and to return to medical records prior to SOCIAL AND POLITICAL STUDIES PROFESSOR appt. documented in this encounter Plan of Treatment Not on file documented as of this encounter Visit Diagnoses Not on filedocumented in this encounter Care Teams Calculator Operator Relationship Specialty Start Date End Date Micaela Bangura MD [address] [place] [address] PCP - General Internal Medicine 11/22/22 11/29/22 documented as of this encounter
[2025-03-27 11:41] LABS: HBsAGNum1 0.26 S/CO (0.00-0.99); HIV Num 1 0.04 S/CO (0.00-0.99); Hepatitis B Surface Antigen Negative (Negative); ~HepC Num1 0.06 S/CO (0.00-0.79); ~Hepatitis C Antibody Nonreactive (Nonreactive)
[2025-03-27 11:42] LABS: Syphilis Screen Nonreactive (Nonreactive)
== END 2025-03-27 09:40 | disposition home or self-care (01) ==
LOC: HO.LAB 09:39
PROVIDERS: PCP Physician Assistant; Visit Provider Obstetrics & Gynecology
DX: Z11.4 Encounter for screening for human immunodeficiency virus [HIV] (principal); Z11.59 Encounter for screening for other viral diseases; Z11.3 Encounter for screening for infections with a predominantly sexual mode of transmission; N76.0 Acute vaginitis; B96.89 Other specified bacterial agents as the cause of diseases classified elsewhere
CPT/HCPCS: 36415; 86780; 86803; 87340; 87389

== ENCOUNTER 2025-05-27 09:06 | Outpatient (REF) | payer OTHER, SELFPAY ==
--- NOTE | ~2025-05-27 | MM_ITS ---
EXAMINATION: MM SCREENING DIGITAL BREAST TOMOSYNTHESIS, BILATERAL CLINICAL INFORMATION: Screening. Asymptomatic. COMPARISON: Mammography: Comparison is made with available priors TECHNIQUE: Digital breast mammography with tomosynthesis is performed in both the craniocaudal and mediolateral oblique views along with computer-aided detection (CAD). FINDINGS: The breasts are heterogeneously dense, which may obscure small masses. There are no significant masses, abnormal calcifications, or other abnormalities. MM/MM tomosynthesis screening BI IMPRESSION: No mammographic evidence of malignancy. ASSESSMENT: BI-RADS Category 1: Negative RECOMMENDATION: Routine annual mammography screening. 1 year F/U This examination should not preclude the clinical evaluation of a suspicious palpable abnormality. This patient's information was entered into a reminder system with a target due date for their next mammogram. Electronically signed by: Nora Gama DO 05/27/2025 10:52 AM ROCÍO
--- OUTSIDE RECORDS SUMMARY | 2025-05-27 09:53 | XMS_ITS | Clinical Summary ---
Author Organization [employer] Address [address] [facility] 7t [place] [address] Care Team Providers Care Environmental Lead Name Role Phone Unavailable Primary Care Provider [...] patient's age to complete this topic Insurance [facility] HSN FULL
--- OUTSIDE RECORDS SUMMARY | 2025-05-27 09:53 | XMS_ITS | Encounter Summary ---
Author Organization [employer] Address [address] [place] [address] 7 [place] [address] Care Team Providers Care Medicaid Specialist Name Role Phone Micaela Bangura MD Primary Care Pro vider Reason for Visit * Reason Onset Date Comments New Patient Appt 11/22/2022 Encounter Details Date Type Department Care Team (Late st Contact Info) Description 11/22/2022 Telephone [facility] [address] [place], [place] [phone] Micaela Bangura MD [address] [place] [address] New Patient Appt Social History Tobacco Use [...] EDT JESSE Lennon called pt to offer REFERRAL MANAGEMENT LIAISON appt. Pt demographics and insurance information were verified.Pt reports no medical conditions. Pt currently Takes Control. Pt given REFERRAL MANAGEMENT LIAISON appt with on 01/08/[address] Csatro @ 1:45 pm. Pt will be sent appt reminder card and medical release form and agrees to complete and to return to medical records prior to REFERRAL MANAGEMENT LIAISON appt. documented in this encounter Plan of Treatment Not on file documented as of this encounter Visit Diagnoses Not on filedocumented in this encounter Care Teams Medicaid Specialist Relationship Specialty Start Date End Date Micaela Bangura MD [address] [place] [address] PCP - General Internal Medicine 11/22/22 11/29/22 documented as of this encounter
--- OUTSIDE RECORDS SUMMARY | 2025-05-27 09:53 | XMS_ITS | Encounter Summary ---
Author Organization [facility] Address [address] [place] [address] Care Team Providers Care Washery Engineer Name Role Phone Ramses Ochoa Primary Care Provider [phone] Encounter Details Date Type Department Care Team (Latest Contact Info) Description 12/02/2024 [employer] Message [facility] Interventional Radiology [address] [place] [address] Mychart, Generic Provider [address] [place] [address] Uterine artery Embolization Social History Tobacco Use [...] as of this encounter Plan of Treatment Not on file documented as of this encounter Visit Diagnoses Not on filedocumented in this encounter Care Teams Washery Engineer Relationship Specialty Start Date End Date Ramses Ochoa PA [address] [place] [address] PCP - General 08/15/24 documented as of this encounter
--- OUTSIDE RECORDS SUMMARY | 2025-05-27 09:53 | XMS_ITS | Encounter Summary ---
Author Organization [facility] Address [address] [place] [address] Care Team Providers Care Enterprise Analyst Name Role Phone Ramses Ochoa Primary Care Provider [phone] Encounter Details Date Type Department Care Team (Late st Contact Info) Description 11/21/2024 [facility] Interventional Radiology [address] [place] [address] Mychart, Generic Provider [address] [place], [place] [phone] Insurance auth Social History Tobacco Use Types [...] on filedocumented in this encounter Care Teams Enterprise Analyst Relationship Specialty Start Date End Date Ramses Ochoa PA [address] [place] [address] PCP - General 08/15/24 documented as of this encounter
--- OUTSIDE RECORDS SUMMARY | 2025-05-27 09:53 | XMS_ITS | Clinical Summary ---
Author Organization [facility] Address [address] [place] [address] Care Team Providers Care Oral And Maxillofacial Surgery Name Role Phone Ramses Ochoa Primary Care Provider [phone] Allergies No known active allergies Medications PATIENT REPORTED OTC MEDICATION daily. [employer]: Vegan Liquid Vitamins takes as directed. Active omeprazole (PriLOSEC) 20 mg capsule Take 1 capsule (20 mg total) by mouth 2 (two) times a day for 7 days. 14 capsule Active Additional Information Patient not taking.Reported on 04/29/2025 scopolamine (TRANSDERM-SCOP ) 1 mg over [address] 1 patch on the skin every 3rd day. Apply behind ear. 1 patch Active Additional Information Patient not taking.Reported on 04/29/2025 ondansetron (ZOFRAN) 4 mg tablet Take 1 tablet (4 mg total) by mouth every 8 hours as needed for nausea or vomiting. 15 tablet Active Additional Information Patient not taking.Reported on 04/29/2025 docusate sodium (COLACE) 100 mg capsule Take 1 capsule (100 mg total) by mouth 3 times a day as needed for constipation. 21 capsule Active Additional Information Patient not taking.Reported on 04/29/2025 Encounters Date Type Department Care Team Description 04/29/2025 10:28 AM EDT - 04/29/2025 11:59 PM EDT Hospital Encounter [facility] Interventional Radiology [address] [place] [address] History of uterine fibroid Discharge Disposition: Home or Self Care () 04/27/2025 Telephone [facility] Interventional Radiology [address] [place] [address] Ashley Pearson E, CALIBRATION ENGINEER 03/24/2025 Telephone [facility] Interventional Radiology [address] [place] [address] Eleonora Caceres LPN 03/06/2025 Telephone [facility] Interventional Radiology [address] [place] [address] Michaelle Encinas PA 02/27/2025 myChart Message [facility] Interventional Radiology [address] [place] [address] Mychart, Generic Provider Return to work from Last 3 Months Family History Medical [...] Sign Reading Time Taken Comments Blood Pressure 135/86 04/29/2025 10:42 AM EDT Pulse 72 04/29/2025 10:42 AM EDT Temperature 36.3 C (97.3 F) 04/29/2025 10:42 AM EDT Respiratory Rate 16 02/11/2025 12:55 PM EDT Oxygen Saturation 99% 04/29/2025 10:42 AM EDT Inhaled Oxygen Concentration - - Weight 87.1 kg (192 lb) 04/29/2025 10:42 AM EDT Height 165.1 cm (5' 5 ) 04/29/2025 10:42 AM EDT Body Mass Index 31.95 04/29/2025 10:42 AM EDT Plan of Treatment Health Maintenance Due Date Last Done Comments Cervical Cancer Screening 1983 HIV Screening 1983 HPV and Pap Smear 1983 Hepatitis C Screening 1983 Pap Smear 1983 Varicella Vaccines (1 of 2 - 13+ 2-dose series) 1996 Hepatitis B Vaccines (1 of 3 - 19+ 3-dose series) 2002 Pneumococcal Vaccine: Pediat jose (0-5 Years) and At-Risk Patients (6-50 Years) (1 of 2 - PCV) 2002 Mammogram 2023 Alcohol/Substance Use Screening 07/02/2024 Depression Screening and Follow-Up 07/02/2024 Social Drivers of Health Karla ual Screening 07/02/2024 Influenza Vaccine (#1) 2025 05/22/2022, 2018 COVID-19 Vaccine ( season) 2025 09/11/2021, 11/18/2020, 10/27/2020 Diabetes Screening 02/12/2028 02/11/2025 DTaP,Tdap,and Td Vaccines (2 - Td or Tdap) 11/08/2028 11/08/2018 Medical Devices Implanted Type Area Mixer Operator Vacuum Pan Salt Device Identifier Shelf Expiration Date Model / Serial / Lot Microsphere Embolization Prefilled Syringe Red 500um-700um 20ml [facility] - [id number] Implanted:Qty: 5 on 02/11/2025 at [facility] 09/13/2027 [id number] / / [id number] Microsphere Embolization Prefilled Syringe Green 700um-900um 20ml [facility] - [id number] Implanted:Qty: 2 on 02/11/2025 at [facility] 08/19/2027 [id number] / / [id number] Procedures * Due to [place] state law, this organization might not be sharing negative HIV tests. Procedure Name Priority Date/Time Associated Diagnosis Comments BASIC METABOLIC PANEL STAT 02/11/2025 7:27 AM EDT Intramural, submucous, and subserous leiomyoma of uterus from Last 3 Months or Most Recently Relevant to Health Maintenance Results * Due to [place] state law, this organization might not be sharing negative HIV tests. * (ABNORMAL) Basic Metabolic Panel (02/11/2025 7:27 AM EDT) NA 139 135 - 145 mmol/L 02/11/2025 8:10 AM EDT [facility] K 3.7 3.5 - 5.3 mmol/L 02/11/2025 8:10 AM EDT [facility] Cl 106 98 - 107 mmol/L 02/11/2025 8:10 AM EDT [facility] CO2 23 22 - 32 mmol/L 02/11/2025 8:10 AM [facility] BUN 16 7 - 23 mg/dL 02/11/2025 8:10 AM EDT [facility] Creatinine 0.81 0.50 - 1.20 mg/dL 02/11/2025 8:10 AM EDT [facility] Glucose 100(H) 65 - 99 mg/dL 02/11/2025 8:10 AM [facility] Calcium 8.3(L) 8.6 - 10.5 mg/dL 02/11/2025 [facility] Anion Gap 10 5 - 15 02/11/2025 8:10 AM EDT [facility] eGFR >90 >=60 mL/min/1. 73m2 02/11/2025 8:10 AM T [facility] Comment:The estimated glomer ular filtration rate (eGFR) is calculated using a new formula developed by the NKF-ASN task force to eliminate race-based correction factors. The new formula uses serum/plasma creatinine, age, and gender to determine eGFR. A value below 60mls/min might indicate kidney disease and will be flagged. For additional information, see Annelise figueroa al, Am J Kidney Dis. 2021;79(2):268- 288, A Unifying Approach for GFR estimation: Recommendations of the NKF-ASN Task Force on Reassessing the Inclusion of Race in Diagnosing Kidney Disease . Blood Structure of peripheral vein / Unknown Venipuncture / Unknown 02/11/2025 7:27 AM EDT 02/11/2025 7:41 AM EDT us Michaelle HU LAB BLOOD ORDERABLES Final Re sult [facility] [address] [place] [address], from Last 3 Months or Most Recently Relevant to Health Maintenance Insurance [facility] Care Teams Oral And Maxillofacial Surgery Relationship Specialty Start Date End Date Ramses Ochoa PA [address] [place] [id number] PCP - General 08/15/24
--- OUTSIDE RECORDS SUMMARY | 2025-05-27 09:53 | XMS_ITS | Encounter Summary ---
Author Organization [facility] Address [address] [place] [address] Care Team Providers Care Mixer Wet Pour Name Role Phone Ramses Ochoa Primary Care Provider Encounter Details Date Type Department Care Team (Late st Contact Info) Description 02/27/2025 [employer] [facility] Interventional Radiology [address] [place] [address] Mychart, Generic Provider [address] [place] [address] [phone] Return to work Social History Tobacco Use [...] on filedocumented in this encounter Care Teams Mixer Wet Pour Relationship Specialty Start Date End Date Ramses Ochoa PA [address] [place] [address] PCP - General 08/15/24 documented as of this encounter
== END 2025-05-27 09:07 | disposition home or self-care (01) ==
LOC: HO.MAMMO 09:06
PROVIDERS: PCP Physician Assistant; Visit Provider Obstetrics & Gynecology
DX: Z12.31 Encounter for screening mammogram for malignant neoplasm of breast (principal)
CPT/HCPCS: 77063; 77067

== ENCOUNTER → 2025-05-27 09:15 | Outpatient (BNV) | payer OTHER, SELFPAY | PROVIDERS: PCP Physician Assistant; Visit Provider Internal Medicine | DX: Z12.31 Encounter for screening mammogram for malignant neoplasm of breast (principal) | CPT/HCPCS: 77063; 77067 ==

== ENCOUNTER 2025-06-24 11:08 | Outpatient (AMB) | payer OTHER, SELFPAY ==
--- OUTSIDE RECORDS SUMMARY | 2025-06-24 11:12 | XMS_ITS | Clinical Summary ---
Author Organization [employer] Address [address] [facility] [address] [place] [address] Care Team Providers Care Technical Spec Name Role Phone Unavailable Primary Care Provider [...] patient's age to complete this topic Insurance [facility] HSN FULL
--- OUTSIDE RECORDS SUMMARY | 2025-06-24 11:12 | XMS_ITS | Encounter Summary ---
Author Organization [facility] Address [address] [place] [address] Care Team Providers Care Tooth Grinder Name Role Phone Ramses Ochoa Primary Care Provider [phone] Encounter Details Date Type Department Care Team (Latest Contact Info) Description 12/02/2024 Instagram Message [facility] Interventional Radiology [address] [place] [address] Mychart, Generic Provider [address] [place] [address] Uterine artery Embolization Social History [...] on filedocumented in this encounter Care Teams Tooth Grinder Relationship Specialty Start Date End Date Ramses Ochoa PA [address] [place] [address] PCP - General 08/15/24 documented as of this encounter
--- OUTSIDE RECORDS SUMMARY | 2025-06-24 11:12 | XMS_ITS | Encounter Summary ---
Author Organization [facility] Address [address] [place] [address] Care Team Providers Care Departmental Shipping Clerk Name Role Phone Ramses Ochoa Primary Care Provider [phone] Encounter Details Date Type Department Care Team (Late st Contact Info) Description 11/21/2024 [employer] [facility] Interventional Radiology [address] [place] [address] Mychart, Generic Provider [address] [place], [place] [phone] Insurance auth Social History Tobacco Use Types [...] on filedocumented in this encounter Care Teams Departmental Shipping Clerk Relationship Specialty Start Date End Date Ramses Ochoa PA [address] [place] [address] PCP - General 08/15/24 documented as of this encounter
--- OUTSIDE RECORDS SUMMARY | 2025-06-24 11:12 | XMS_ITS | Encounter Summary ---
Author Organization [employer] Address [address] [place] [address] [address] [place] [address] Care Team Providers Care Personal Financial Representative Name Role Phone Micaela Bangura MD Primary Care Pro vider Reason for Visit * Reason Onset Date Comments New Patient Appt 11/22/2022 Encounter Details Date Type Department Care Team (Late st Contact Info) Description 11/22/2022 Telephone [facility] MEDICINE [address] [place], [place] [phone] Micaela Bangura MD [address] [place], [place] [phone] New Patient Appt Social History Tobacco Use [...] EDT JESSE Lennon called pt to offer AIRPLANE NAVIGATOR appt. Pt demographics and insurance information were verified.Pt reports no medical conditions. Pt currently Takes Control. Pt given AIRPLANE NAVIGATOR appt with on 01/08/[address] Castro @ 1:45 pm. Pt will be sent appt reminder card and medical release form and agrees to complete and to return to medical records prior to AIRPLANE NAVIGATOR appt. documented in this encounter Plan of Treatment Not on file documented as of this encounter Visit Diagnoses Not on filedocumented in this encounter Care Teams Personal Financial Representative Relationship Specialty Start Date End Date Micaela Bangura MD [address] [place] [id number] PCP - General Internal Medicine 11/22/22 11/29/22 documented as of this encounter
--- OUTSIDE RECORDS SUMMARY | 2025-06-24 11:12 | XMS_ITS | Clinical Summary ---
Author Organization [facility] Address [address] [place] [address] Care Team Providers Care Custom Stock Maker Name Role Phone Ramses Ochoa Primary Care Provider [phone] Allergies No known active allergies Medications PATIENT [...] - 04/29/2025 11:59 PM EDT Hospital Encounter [facility] Interventional Radiology [address] [place] [address] History of uterine fibroid Discharge Disposition: Home or Self Care () 04/27/2025 [facility] Interventional Radiology [address] [place] [address] PearsonAshley, CONTRACT MODELER from Last 3 Months Family History Medical [...] Social Drivers of Health Annual Screening 07/02/2024 Influenza Vaccine (#1) 2025 2, 06/12/2019 COVID-19 Vaccine ( - 2024-2 6 season) 2025 09/11/2021, 11/18/2020, 10/27/2020 Diabetes Screening 02/12/2028 02/11/2025 DTaP,Tdap,and Td Vaccines (2 - Td or Tdap) 11/08/2028 11/08/2018 Pneumococcal Vaccine: Pediatric (0-5 Years) and At-Risk Patients (6-50 Years) Aged Out No longer eligible based on patient's age to complete this topic Medical Devices Implanted Type Area Integration Software Developer Device Identifier Shelf Expiration Date Model / Serial / Lot Microsphere Embolization Prefilled Syringe Red 500um-700um 20ml [employer] - [id number] Implanted:Qty: 5 on 02/11/2025 at [facility] 09/13/2027 [id number] / / [id number] Microsphere Embolization Prefilled Syringe Green 700um-900um 20ml [employer] - [id number] Implanted:Qty: 2 on 02/11/2025 at [facility] 08/19/2027 [id number] / / [id number] Procedures * Due to [place] law, this organization might not be sharing negative HIV tests. Procedure Name Priority Date/Time Associated Diagnosis Comments BASIC METABOLIC PANEL STAT 02/11/2025 7:27 AM EDT Intramural, submucous, and subserous leiomyoma of uterus from Last 3 Months or Most Recently Relevant to Health Maintenance Results * Due to [place] law, this organization might not be sharing negative HIV tests. * (ABNORMAL) Basic Metabolic Panel (02/11/2025 7:27 AM EDT) NA 139 135 - 145 mmol/L 02/11/2025 8:10 AM EDT [facility] K 3.7 3.5 - 5.3 mmol/L 02/11/2025 8:10 AM T [facility] Cl 106 98 - 107 mmol/L 02/11/2025 8:10 AM [facility] CO2 23 22 - 32 mmol/L 02/11/2025 8:10 AM [facility] BUN 16 7 - 23 mg/dL 02/11/2025 8:[facility] Creatinine 0.81 0.50 - 1.20 mg/dL 02/11/2025 8:10 AM [facility] Glucose 100(H) 65 - 99 mg/dL 02/11/2025 8:10 AM [facility] Calcium 8.3(L) 8.6 - 10.5 mg/dL 02/11/2025 8:10 AM [facility] Anion Gap 10 5 - 15 02/11/2025 8:10 AM [facility] eGFR >90 >=60 mL/min/1. 73m2 02/11/2025 8:10 AM [facility] Comment:The estimated glomer ular filtration [...] 7:27 AM EDT 02/11/2025 7:41 AM EDT Michaelle HU LAB BLOOD ORDERABLES Final Re sult [facility] Organization Address City/State/ZIP Co de Phone Number [facility] [address] [place] [address], from Last 3 Months or Most Recently Relevant to Health Maintenance Insurance [facility] Care Teams Custom Stock Maker Relationship Specialty Start Date End Date Ramses Ochoa PA [address] [place] [id number] PCP - General 08/15/24
--- OUTSIDE RECORDS SUMMARY | 2025-06-24 11:12 | XMS_ITS | Encounter Summary ---
Author Organization [facility] Address [address] [place] [address] Care Team Providers Care Coagulant Dipper Name Role Phone Ramses Ochoa Primary Care Provider [phone] Encounter Details Date Type Department Care Team (Late st Contact Info) Description 02/27/2025 [employer] [facility] Interventional Radiology [address] [place] [phone] Mychart, Generic Provider [address] [place] [address] [phone] Return to work Social History Tobacco Use [...] on filedocumented in this encounter Care Teams Coagulant Dipper Relationship Specialty Start Date End Date Ramses Ochoa PA [address] [place] [address] PCP - General 08/15/24 documented as of this encounter
--- NOTE | 2025-06-24 11:16 | MHC.PC.OV ---
Vital Signs 06/24/25 11:17 Height 5 ft 4 in Weight 192 lb 8 oz BMI 33.0 BP 132/72 Blood Pressure Location Lt brachial Position Sitting Pulse 83 Pulse Source Pulse Oximeter Temp 97.3 F Temp Source Temporal Artery Scan Pulse Oximetry (%) 96 Oxygen Delivery Method Room Air Intake Visit Reasons: follow up Public Improvement Inspector Required: No Research Geneticist: Not Required per policy Accompanied by: Self / Same As Patient Allergies No Known Allergies Allergy (Verified 06/24/25 11:35) Medication List - Last Reconciled 06/24/25 by Ramses Ochoa PA-C No Known Home Meds Tobacco use date assessed: 06/24/25 Dental Screening Dental Screen Date: 06/24/25 Did you have a dental visit in the last 12 months?: Yes Did you have a dental problem in the last 6 months where you did not have access to dental care?: No Was dental information given to patient?: Patient has dentist HPI follow up HPI Details Patient is a 40-year-old female here todayfollow up. Patient has past medical history significant for obesity, uterine fibroid, complex ovarian cyst. Uterine fibroids: Patient has concerns of amenorrhea following a uterine artery embolization, weight management, and symptoms of sleep-disordered breathing. She has a history of large uterine fibroids, which caused heavy and very painful periods for the last 4 to 5 months prior to intervention. To address this, she underwent a uterine artery embolization in January, which targeted the blood supply to the fibroids. .. Snoring and apneic episodes : The patient also reports struggling with her weight and has symptoms suggestive of obstructive sleep apnea which began in the last year. She has become heavier, started snoring, and has been observed by her fiance to have choking episodes during sleep. Regarding her lifestyle, she is not very active at the gym due to time constraints, but reports that she cooks healthy meals with vegetables and avoids junk food. .. Elevated fasting blood sugar: Most recent labs showing fasting blood sugar of 100. Will recheck fasting sugar as patient has gained weight since last office visit. [facility] Medical History Allergic rhinitis Surgical History H/O plastic surgery Family History Father HTN (hypertension) Mother HTN (hypertension) Maternal Grandmother Uterine cancer Social History Housing: House Alcohol intake: current Alcohol intake frequency: holidays/special occasions only Patient Tobacco Use Status: Never used Tobacco e-Cigarette/Vaping Use: Never Used Second Hand Smoke Exposure: No service: No Current occupational status: employed Current occupation: [employer] Gender identity: Female Cognitive needs: No Hearing needs: No Vision needs: No Female Reproductive History Menstrual Age of Menarche: 12 Questionnaire PHQ-9 Over the last 2 weeks, how often have you been bothered by any of the following problems? 1. Little interest or pleasure in doing things: several days 2. Feeling down, depressed, or hopeless: several days 3. Trouble falling or staying asleep, or sleeping too much: several days 4. Feeling tired or having little energy: several days 5. Poor appetite or overeating: more than half the days 6. Feeling bad about yourself - or that you are a failure or have let yourself or your family down: not at all 7. Trouble concentrating on things, such as reading the newspaper or watching television: not at all 8. Moving or speaking so slowly that other people could have noticed. Or the opposite - being so fidgety or restless that you have been moving around a lot more than usual: not at all 9. Thoughts that you would be better off or of hurting yourself in some way: not at all Total score: 6 Depression Screening Interpretation: Positive Depression Screening Done: Yes Source: Developed by Drs. Tyler Stanton, Anny العلي, Stanley Padilla and colleagues, with an educational maria ines from [employer]. Thrive Questionnaire Date Thrive assessed: 05/04/25 I am a: Patient What is your living situation today?: I have a steady place to live Within the past 12 months, did the food you bought not last and you didn't have the money to get more?: Sometimes True Within the past 12 months, did you worry whether your food would run out before you got money to buy more?: Often true Do you have trouble paying for medicines?: Yes Do you have trouble getting transportation to medical appointments?: No Do you have trouble paying your heating and electricity bill?: Yes Do you have trouble taking care of your child, family member or friend?: No Do you have trouble with day-to-day activities such as bathing, preparing meals, shopping, managing finances, etc.?: No Are you currently unemployed and looking for a job?: No Are you interested in more education?: Yes Currently or been in a relationship where the following occur: Controlled Financially and Controlled Emotionally THRIVE Score: 5 AUDIT C Alcohol Use Questionnaire (AUDIT-C) 1. How often do you have a drink containing alcohol?: Monthly or less 2. How many drinks containing alcohol do you have on a typical day when you are drinking?: 1 or 2 Total Score: 1 OMARI-7 AMB Questionnaire OMARI-7 Date OMARI - 7 assessed: 06/24/25 Feeling nervous, anxious, or on edge: 0 = Not at all Not being able to stop or control worryin = Not at all Worrying too much about different things: 0 = Not at all Trouble relaxin = Not at all Being so restless that it is hard to sit still: 0 = Not at all Becoming easily annoyed or irritable: 0 = Not at all Feeling afraid as if something awful might happen: 0 = Not at all Total OMARI-7 score (0-4 normal; 5-9 mild; 10-14 moderate; 15-21 severe): 0 Source: Developed by Drs. Tyler Stanton, Anny العلي, Stanley Padilla and colleagues, with an educational maria ines from [employer]. Review of Systems Const Denies headache(s) Eyes Denies loss of vision ENT Denies vertigo, Denies dizziness, Denies headache(s) and Denies sore throat Card Denies chest pain, Denies leg edema and Denies lightheadedness Resp Denies cough, Denies hemoptysis and Denies wheezing GI Denies abdominal pain, Denies melena, Denies constipation, Denies diarrhea and Denies vomiting Denies urinary frequency, Denies dysuria and Denies urinary urgency Musc Denies arthralgias, Denies joint swelling, Denies numbness and Denies tingling Neuro Denies Abnormal speech present, Denies behavioral changes, Denies vertigo, Denies dizziness, Denies headache(s), Denies loss of vision, Denies memory loss, Denies numbness and Denies tingling Psych Denies anxiety, Denies behavioral changes, Denies depression, Denies memory loss and Denies panic attacks Leeroy/Lymph Denies easy bleeding and Denies easy bruising Aller/Immun Denies wheezing Physical exam (Primary Care) Vital Signs: Last Vital Signs Temp 97.3 F 06/24/25 11:17 Pulse 83 06/24/25 11:17 BP 132/72 06/24/25 11:17 Pulse Ox 96 06/24/25 11:17 Oxygen Delivery Method Room Air 06/24/25 11:17 BMI result Body Mass Index 33.0 BMI Assessment/Plan discussion: High BMI High, discussed plan: lifestyle, weight reduction, dietary and physical activity Tobacco/Smoking Status: Tobacco use Status Tobacco use date assessed 06/24/25 06/24/25 11:24 Patient Tobacco Use Status Never used Tobacco 06/24/25 11:24 e-Cigarette/Vaping Use Never Used 06/24/25 11:24 PHQ-9: PHQ-9 Score PHQ-9: Total score 6 06/24/25 11:36 Depression Screening Interpretation: Positive Thrive Assessment: Date of Thrive Assessment Date Thrive assessed 05/04/25 06/24/25 11:24 Currently or been in a relationship where the following occur: Controlled Financially and Controlled Emotionally Const Other: Obese General: healthy appearing, no acute distress, alert and awake Nutritional Appearance: well nourished Orientation/consciousness: oriented to person, oriented to place and oriented to time HENMT Ears: TM's normal bilaterally General nose exam: Normal nasal mucous membranes and turbinates present Eyes Conjunctivae: conjunctivae normal Sclerae: sclerae normal Pupils: Equal, round and reactive pupils present Neck Neck: Yes no lymphadenopathy and Yes no JVD Thyroid: Thyroid normal Carotids: no bruits Resp Effort & Inspection: normal respiratory effort and not tachypneic Auscultation: no crackles, no rales, no rhonchi and no wheezes Cardio Rate: regular rate Rhythm: regular rhythm Heart sounds: no murmurs and normal S1 and S2 GI Palpation (GI): Soft to palpation, nontender, no hepatomegaly and no splenomegaly Auscultation: normal bowel sounds Skin General skin exam: no rashes or lesions noted and dry skin Neuro General: oriented to person, oriented to place and oriented to time Cranial nerves: Yes Equal, round and reactive pupils present Speech: No Abnormal speech present Gait exam (Neuro): Normal gait present Motor exam (neuro): no tremor noted Extrem Right upper extremity: full ROM Left upper extremity: full ROM Right lower extremity: full ROM; no edema Left lower extremity: full ROM; no edema Psych Mental Status: mental status grossly normal Speech and movement: Normal speech and movement present Affect: normal affect Attitude: cooperative Thought process: Normal thought process present Coding Level of Care Code Est Pt Level 4 (80867) Diagnoses Obesity (BMI 30.0-34.9) E66.9 Elevated fasting blood sugar R73.01 Amenorrhea N91.2 Witnessed episode of apnea R06.81 Assessment & Plan Assessment & Plan (1) Obesity (BMI 30.0-34.9): Code(s): E66.9 - Obesity, unspecified Category: Medical Plan: Patient does understand her BMI is over 30 will continue trying to work on being more physically active and adapt to better eating habits to reduce her weight. We discussed weight loss medications such as phentermine though will hold off on any meds at this time. Patient likely not a candidate for GLP 1 therapy as she does not have type 2 diabetes or diagnosed sleep apnea. Will try to set her up with a home sleep study to eval for obstructive sleep apnea due to her signs and symptoms of apneic episodes and daytime fatigue (2) Elevated fasting blood sugar: Code(s): R73.01 - Impaired fasting glucose Category: Medical Plan: Patient has a history of elevated fasting blood sugar, will check an A1c at next lab draw (3) Amenorrhea: Code(s): N91.2 - Amenorrhea, unspecified Category: Medical Plan: To evaluate the patient's amenorrhea, fasting labs will be ordered, including a blood-based test, fasting blood sugar, A1C, cholesterol panel, and thyroid function tests. A follicle-stimulating hormone (FSH) level will also be added to assess for possible perimenopause. (4) Witnessed episode of apnea: Code(s): R06.81 - Apnea, not elsewhere classified Category: Medical Plan: To investigate the patient's snoring and choking episodes, a referral will be placed for a home sleep study to rule out obstructive sleep apnea (KHADAR). It was explained that a diagnosis of moderate to severe KHADAR could help secure insurance coverage for weight loss medications like Zepbound, which are otherwise frequently denied. The patient was advised to confirm insurance coverage for the sleep study when she is contacted for scheduling Orders: Orders RT home sleep study 06/24/25 R06.81 - Apnea, not elsewhere classified HCG Quantitative 06/24/25 N91.2 - Amenorrhea, unspecified Follicle Stimulating Hormone 06/24/25 N91.2 - Amenorrhea, unspecified Medications: Discontinued metronidazole Take with food, Avoid alcohol and vinegar products Discontinued Reason: Patient Completed Course 500 mg PO BID 7 days 14 tabs 0RF
[2025-06-24 11:17] VITALS: BP 132/72; PULSE 83; TEMP 36.3; O2SAT 96; BMI 33.0
== END 2025-06-24 12:02 | disposition home or self-care (01) ==
LOC: HO.HMCH 11:09
PROVIDERS: PCP Physician Assistant; Visit Provider Physician Assistant
DX: E66.9 Obesity, unspecified (principal); R73.01 Impaired fasting glucose; N91.2 Amenorrhea, unspecified; R06.81 Apnea, not elsewhere classified

== ENCOUNTER 2025-06-24 11:08 | Outpatient (REF) | payer OTHER, SELFPAY ==
[2025-06-24 13:01] LABS: Hematocrit 43.1 % (37.0-47.0); Hemoglobin 14.1 g/dl (12.0-16.0); Mean Corpuscular HGB Conc 32.7 g/dl (31.0-35.0); Mean Corpuscular Hemoglobin 27.0 pg (27.0-33.0); Mean Corpuscular Volume 82.6 fL (80.0-98.0); NRBC Abs Auto 0.000 X10*3/uL (0.0-0.012); NRBC Pct Auto 0.0 /100WBC (0.0-0.2); Platelet Count 285 X10*3/uL (160-400); Red Blood Count 5.22 X10*6/uL (4.20-5.50); White Blood Count 6.7 X10*3/uL (4.8-10.8)
[2025-06-24 13:51] LABS: Alanine Aminotransferase 63 U/L (0-31); Albumin Level 4.5 g/dL (3.5-5.0); Alkaline Phosphatase 97 U/L (39-117); Anion Gap 13 (12-20); Aspartate Amino Transferase 37 U/L (5-31); Blood Urea Nitrogen 15 mg/dL (9-16); Calcium 9.4 mg/dL (8.4-10.2); Carbon Dioxide 25 mmol/L (22-29); Chloride 107 mmol/L (96-108); Cholesterol 198 mg/dL (<200); Estimated Glomerular Filt Rate > 60; HDL Cholesterol 63 mg/dL (>40); Potassium 4.4 mmol/L (3.3-5.1); Sodium 141 mmol/L (135-145); Total Protein 7.8 g/dL (6.5-8.0); Triglycerides 96 mg/dL (<150)
[2025-06-25 12:14] LABS: Follicle Stimulating Hormone 3.8 mIU/mL
== END 2025-06-24 11:09 | disposition home or self-care (01) ==
LOC: HO.LAB 11:08
PROVIDERS: PCP Physician Assistant; Visit Provider Physician Assistant
DX: Z13.1 Encounter for screening for diabetes mellitus (principal); R73.01 Impaired fasting glucose; E66.9 Obesity, unspecified; N91.2 Amenorrhea, unspecified; R06.81 Apnea, not elsewhere classified; Z68.33 Body mass index [BMI] 33.0-33.9, adult
CPT/HCPCS: 36415; 80053; 80061; 83001; 83036; 84443; 84702; 85027; 99212